=== PATIENT | male | born 1970 | race Caucasian/White ===

== ENCOUNTER 2023-05-21 09:50 | Outpatient (AMB) | payer OTHER, SELFPAY ==
--- NOTE | 2023-05-21 09:56 | A.OFFVIS_ITS ---
Intake Vital Signs 05/21/23 10:13 Height 5 ft 5 in Weight 325 lb 2 oz BMI 54.1 BP 112/64 Blood Pressure Location Lt brachial Position Sitting Pulse 60 Pulse Source Pulse Oximeter Pulse Oximetry (%) 95 Oxygen Delivery Method Room Air Intake Visit Reasons: PYS-OPC-Oczz Intake Note: Patient presents for EULALIO. Waking up every hour. Snoring and biting his tongue while sleeping. Wakes up choking feeling like he needs air . Allergies No Known Allergies Allergy (Verified 05/21/23 10:04) HPI HPI Comments History of Present Illness Details 53 y/o male patient presents for new in- person visit to manage sleep apnea. He was diagnosed with EULALIO in 2007 and has been using CPAP. The first sleep study result was severe degree of sleep apnea. The AHI was 97/hr. He also gained about 130 lb over the last few years. Pt moved from [place] and insurance changed, and did not get CPAP supplies since last January,. Pt states that his mask broken, and he does not have any extra filter, so stopped using CPAP. He was able to sleep well with CPAP and rested. Now he can't sleep well, wakes up frequently, having non refreshing sleep with daytime sleepiness. Pt reports that his sleep study result was severe degree of sleep apnea. The AHI was 97/hr. Sleep questionnaire: Have you ever been diagnosed with a sleep disorder? Yes, EULALIO severe degree. Have you ever had a sleep study in the past? Yes. in 2007. Have you ever been treated for a sleep disorder? Yes, CPAP. Do you take medications for a sleep disorder? No. Do you snore? Yes. Do you wake up gasping at night? Yes. Do you have episodes of apneas? Yes. If yes, are they witnessed? Yes. Do you have episodes of nocturnal chest pain or dyspnea? Yes. Do you have difficulty initiating sleep? Yes. Do you have difficulty maintaining sleep? Yes. Do you wake up tired? Yes. Do you have headaches upon awakening? Yes. Do you wake up with dry mouth or throat? Yes. Do you have GERD? Yes. Do you have nocturia? Yes, too much. Do you have nocturnal leg cramps? No. Do you have symptoms of restless legs? No. Do you act out your dreams? No. Sleep hygiene questionnaire: What is your usual sleep routine? Usual bedtime is at 8:30 pm; Usual wake up time is at 5 am. Do you take naps? Yes, every day, about 3 hrs. Is your sleep environment cool, dark, and quiet? Yes. Do you exercise? No. Do you take caffeine or other stimulants? Coffee and soda, but not every day. Do you use electronics in bed? Yes, What is your work schedule? N/A. Hypersomnolence questionnaire: Do you have daytime tiredness or fatigue? Yes. Do you easily fall asleep when inactive? Yes. Have you ever had episodes of sudden weakness? No. Have you ever had episodes of sudden weakness associated with strong emotions? No. PFSH Surgical History (Updated 05/21/23 @ 10:09 by Mary Alice Ibarra CMA) History of tonsillectomy Family History (Updated 05/21/23 @ 12:35 by Mary Alice Ibarra CMA) Father Diabetes Mother Borderline blood pressure Brother ADHD Sister Arthritis Social History (Updated 05/21/23 @ 10:13 by Mary Alice Ibarra CMA) Household Members: Family and Children Housing: Apartment Alcohol intake: current Comment: Ocassionally Patient Tobacco Use Status: Former Tobacco user Years Smoked: 4 Review of Systems Const All systems reviewed & are unremarkable except as noted in HPI and below Physical Exam Vital Signs: Last Vital Signs Pulse 60 05/21/23 10:13 BP 112/64 05/21/23 10:13 Pulse Ox 95 05/21/23 10:13 Oxygen Delivery Method Room Air 05/21/23 10:13 BMI result Body Mass Index 54.1 Const General: cooperative and tired appearing Nutritional Appearance: obese Orientation/consciousness: patient oriented x3 Neck Neck: Yes full ROM and Yes supple Resp Effort & Inspection: normal respiratory effort and able to speak in complete sentences Neuro General: patient oriented x3 Cranial nerves: Yes CN's II-XII intact bilaterally Cognition (Neuro): normal cognition Gait exam (Neuro): Antalgic gait present Motor exam (neuro): 5/5 motor strength present throughout Psych Appearance: grossly normal Mental Status: mental status grossly normal Speech and movement: Normal speech and movement present Affect: normal affect Attitude: cooperative Assessment & Plan Assessment & Plan (1) EULALIO (obstructive sleep apnea): Comment: hx of severe degree of sleep apnea. AHI was 97/hr. Code(s): G47.33 - Obstructive sleep apnea (adult) (pediatric) (2) Morbid obesity with BMI of 50.0-59.9, adult: Code(s): E66.01 - Morbid (severe) obesity due to excess calories; Z68.43 - Body mass index [BMI] 50.0-59.9, adult Plan Pt is advised to undergo in lab sleep study to assess for sleep apnea. Will f/u with pt after study to discuss results and appropriate treatment options. Sleep hygiene education provided, limit electronic use before bedtime. Wt reduction adivsed. Pt to call with any worsening concerns or questions. Orders: Orders RT PSG in-lab sleep study Today E66.01 - Morbid (severe) obesity due to excess calories, G47.33 - Obstructive sleep apnea (adult) (pediatric), Z68.43 - Body mass index [BMI] 50.0-59.9, adult Coding Level of Care Code New Pt Level 3 (66795) Diagnoses EULALIO (obstructive sleep apnea) G47.33 Morbid obesity with BMI of 50.0-59.9, adult E66.01; Z68.43
[2023-05-21 10:13] VITALS: BP 112/64; PULSE 60; O2SAT 95; BMI 54.1
== END 2023-05-21 10:39 | disposition home or self-care (01) ==
PROVIDERS: PCP Internal Medicine; Visit Provider Nurse Practitioner Family
DX: G47.33 Obstructive sleep apnea (adult) (pediatric) (principal); E66.01 Morbid (severe) obesity due to excess calories; Z68.43 Body mass index [BMI] 50.0-59.9, adult
CPT/HCPCS: 99203

== ENCOUNTER → 2023-05-21 09:50 | Outpatient (BNVA) | payer OTHER, SELFPAY | PROVIDERS: PCP Internal Medicine; Visit Provider Nurse Practitioner Family | DX: G47.33 Obstructive sleep apnea (adult) (pediatric) (principal); E66.01 Morbid (severe) obesity due to excess calories; Z68.43 Body mass index [BMI] 50.0-59.9, adult | CPT/HCPCS: 99202 ==

== ENCOUNTER → 2023-06-02 20:30 | Outpatient (REF) | payer OTHER, SELFPAY | LOC: HO.SL 20:30 | PROVIDERS: Visit Provider Nurse Practitioner Family | DX: G47.33 Obstructive sleep apnea (adult) (pediatric) (principal); E66.01 Morbid (severe) obesity due to excess calories; Z68.43 Body mass index [BMI] 50.0-59.9, adult | CPT/HCPCS: 95810 ==

== ENCOUNTER → 2023-06-02 22:28 | Outpatient (BNV) | payer OTHER, SELFPAY | PROVIDERS: Visit Provider Psychiatry & Neurology Neurology | DX: G47.33 Obstructive sleep apnea (adult) (pediatric) (principal) | CPT/HCPCS: 95810 ==

== ENCOUNTER 2023-09-30 10:31 | Outpatient (AMB) | payer OTHER, SELFPAY ==
--- NOTE | 2023-09-30 10:34 | MHC.OFFVIS ---
Vital Signs 09/30/23 10:35 Height 5 ft 5 in Weight 331 lb BMI 55.1 BP 152/90 H Blood Pressure Location Rt brachial Position Sitting Respiration 16 Pulse 69 Pulse Source Pulse Oximeter Pulse Oximetry (%) 99 Oxygen Delivery Method Room Air Intake Visit Reasons: Follow up EULALIO - Confirmed Intake Note: Pt presents to the office for 4 month follow up for sleep disturbance and to discuss PSG from 06/22/23. Patent Prosecution Paralegal Required: No Allergies No Known Allergies Allergy (Verified 09/30/23 10:35) HPI Comments Details: 53 y/o male comes for follow up of sleep apnea. His repeat sleep study showed severe sleep apnea with good response to CPAP 14.He is waiting for his CPAP. He was diagnosed with EULALIO in 2007 and has been using CPAP. . Pt moved from [place] and insurance changed, and did not get CPAP supplies since last January,. Pt states that his mask broken, and he does not have any extra filter, so stopped using CPAP. He was able to sleep well with CPAP and rested. Now he can't sleep well, wakes up frequently, having non refreshing sleep with daytime sleepiness. Pt reports that his sleep study result was severe degree of sleep apnea. The AHI was 97/hr. [facility] Surgical History History of tonsillectomy Family History Father Diabetes Mother Borderline blood pressure Brother ADHD Sister Arthritis Social History Household Members: Family and Children Housing: Apartment Alcohol intake: current Comment: Ocassionally Patient Tobacco Use Status: Former Tobacco user Years Smoked: 4 Physical Exam Vital Signs: Last Vital Signs Pulse 69 09/30/23 10:35 Resp 16 09/30/23 10:35 BP 152/90 H 09/30/23 10:35 Pulse Ox 99 09/30/23 10:35 Oxygen Delivery Method Room Air 09/30/23 10:35 BMI result Body Mass Index 55.1 Const General: cooperative and tired appearing Nutritional Appearance: obese Orientation/consciousness: patient oriented x3 Neck Neck: Yes full ROM and Yes supple Resp Effort & Inspection: normal respiratory effort and able to speak in complete sentences Neuro General: patient oriented x3 Cranial nerves: Yes CN's II-XII intact bilaterally Cognition (Neuro): normal cognition Gait exam (Neuro): Antalgic gait present Motor exam (neuro): 5/5 motor strength present throughout Assessment & Plan Assessment & Plan (1) EULALIO (obstructive sleep apnea): Comment: hx of severe degree of sleep apnea 71/hr and 75% O2 Code(s): G47.33 - Obstructive sleep apnea (adult) (pediatric) Category: Medical (2) Morbid obesity with BMI of 50.0-59.9, adult: Code(s): E66.01 - Morbid (severe) obesity due to excess calories; Z68.43 - Body mass index [BMI] 50.0-59.9, adult Category: Medical Plan Start patient on CPAP at 14 cm of water and follow up to ensure compliance and therapy response. Coding Level of Care Code Est Pt Level 4 (85519) Diagnoses EULALIO (obstructive sleep apnea) G47.33 Morbid obesity with BMI of 50.0-59.9, adult E66.01; Z68.43
[2023-09-30 10:35] VITALS: BP 152/90; PULSE 69; RESP 16; O2SAT 99; BMI 55.1
== END 2023-09-30 10:51 | disposition home or self-care (01) ==
PROVIDERS: PCP Internal Medicine; Visit Provider Psychiatry & Neurology Neurology
DX: G47.33 Obstructive sleep apnea (adult) (pediatric) (principal); E66.01 Morbid (severe) obesity due to excess calories; Z68.43 Body mass index [BMI] 50.0-59.9, adult
CPT/HCPCS: 99214

== ENCOUNTER → 2023-09-30 10:31 | Outpatient (BNVA) | payer OTHER, SELFPAY | PROVIDERS: PCP Internal Medicine; Visit Provider Psychiatry & Neurology Neurology | DX: G47.33 Obstructive sleep apnea (adult) (pediatric) (principal); E66.01 Morbid (severe) obesity due to excess calories; Z68.43 Body mass index [BMI] 50.0-59.9, adult | CPT/HCPCS: 99212 ==

== ENCOUNTER 2024-04-27 09:47 | Outpatient (AMB) | payer OTHER, SELFPAY ==
[2024-04-27 10:07] VITALS: BP 144/78; PULSE 54; O2SAT 94; BMI 54.6
--- NOTE | 2024-04-27 10:07 | A.OFFVIS_ITS ---
Vital Signs 04/27/24 10:07 Height 5 ft 5 in Weight 328 lb BMI 54.6 BP 144/78 H Blood Pressure Location Lt brachial Position Sitting Pulse 54 Pulse Source Pulse Oximeter Pulse Oximetry (%) 94 Oxygen Delivery Method Room Air Intake Visit Reasons: Follow up EULALIO Intake Note: patient following up for sleep apnea. cpap machine ordered 09/28 compliance report scanned Allergies No Known Allergies Allergy (Verified 04/27/24 10:12) HPI Comments Details: 54 y/o male comes for follow up of sleep apnea. Cpap Compliance Report: 01/28/24- 04/26/24 >4 hours 89 days 99% use Avg usage total 7 hours and 34 Set CPAP pressures 14cm leaks median 26.1 AHI is 4.0 He goes to bed at 8:30pm and gets up at 4:30 am. He has multiple bathroom breaks. He is a single dad for a son age 10, daughter 11, and another son 18 years of age. He is a smoker, has COPD followed by [facility] and trying to quit down to 1/2 pack every 3 days now. He was able to sleep well with CPAP and rested. Now he can't sleep well, wakes up frequently, having non refreshing sleep with daytime sleepiness. His BP is elevated today and we discussed starting meds today, however will refer to PCP. He takes flexiril for his knee pain and LBP. His diet is very poor due to GI issues constant bile coming up in his throat and diarrhea, he has a colonoscopy scheduled on the 08 of June, and Bariatric procedure consult on May 30. His weight used to be 353 and now it is 328 today, he controls his portion sizes now. 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 [facility] Surgical History History of tonsillectomy Family History Father Diabetes Mother Borderline blood pressure Brother ADHD Sister Arthritis Social History Household Members: Family and Children Housing: Apartment Alcohol intake: current Comment: Ocassionally Patient Tobacco Use Status: Former Tobacco user Years Smoked: 4 Physical Exam Vital Signs: Last Vital Signs Pulse 54 04/27/24 10:07 BP 144/78 H 04/27/24 10:07 Pulse Ox 94 04/27/24 10:07 Oxygen Delivery Method Room Air 04/27/24 10:07 BMI result Body Mass Index 54.6 Const General: cooperative and tired appearing Nutritional Appearance: obese (BMI is 54.6) morbidly obese Orientation/consciousness: patient oriented x3 HEENT Face and sinus: Yes normal facial exam and Yes face symmetric Teeth and gingiva: other ([place] score of 4) Eyes Pupils: Equal, round and reactive pupils present Neck Neck: Yes full ROM and Yes supple Resp Effort & Inspection: normal respiratory effort and able to speak in complete sentences Neuro General: patient oriented x3 Cranial nerves: Yes CN's II-XII intact bilaterally, Yes Facial sensation intact/muscles of mastication intact, Yes Equal, round and reactive pupils present, Yes Normal accommodation reflex present, Yes Bilaterally intact EOM present, Yes Nystagmus not present, Yes Normal facial strength present, Yes Midline tongue present, Yes Ability to bilaterally rotate head present and Yes Ability to bilaterally elevate shoulders present Cognition (Neuro): normal cognition Gait exam (Neuro): Antalgic gait present Motor exam (neuro): 5/5 motor strength present throughout Deep tendon reflexes (DTR's): Right triceps reflex intensity grade: 2+, Left triceps reflex intensity grade: 2+, Rt Biceps (C5, C6): 2+, Left biceps reflex intensity grade: 2+, Right brachioradialis reflex intensity grade: 2+, Left brachioradialis reflex intensity grade: 2+, Right patellar reflex intensity grade: 2+ and Left patellar reflex intensity grade: 2+ Psych Attitude: cooperative Thought process: Normal thought process present Thought content: Normal thought content present Results Reviewed Results Reviewed: Cpap Compliance Report: 01/28/24- 04/26/24 >4 hours 89 days 99% use Avg usage total 7 hours and 34 Set CPAP pressures 14cm leaks median 26.1 AHI is 4.0 Assessment & Plan Assessment & Plan (1) EULALIO (obstructive sleep apnea): Comment: hx of severe degree of sleep apnea 71/hr and 75% O2 Code(s): G47.33 - Obstructive sleep apnea (adult) (pediatric) Category: Medical (2) Morbid obesity with BMI of 50.0-59.9, adult: Code(s): E66.01 - Morbid (severe) obesity due to excess calories; Z68.43 - Body mass index [BMI] 50.0-59.9, adult Category: Medical (3) Sciatica of left side: Code(s): M54.32 - Sciatica, left side Category: Medical (4) Uncontrolled hypertension: Code(s): I10 - Essential (primary) hypertension Category: Medical Plan Start patient on CPAP at 14 cm of water and follow up to ensure compliance and therapy response. PT EValuation and treat Sciatica L. hip / leg / buttocks HTN Primary Essential will refer to primary care Monitor BP daily twice a day. Anxiety will start him on Buproprion HCL 150ml XL daily one tablet by mouth in the morning. Orders: Orders PT Evaluation and Treatment Today M54.32 - Sciatica, left side Medications: New bupropion HCl XL (Wellbutrin XL) 150 mg PO QAM 30 tabs 4RF Patient Instructions: BP is elevated today, despite diet, exercise and lifestyle changes. According to the AHA the #1 modifiable risk factor for CV events is good BP management. BMI is 54.6, he is seeing weight management and will be having an elective bariatric procedure in May. Walking can help to lower the BP and weight. Sleep Hygiene provided, sleeping in a dark cool environment without any devices in bed, put a plant in your room to minimize dust particles. Smoking Cessation discussed, counseling along with Buproprion and the patch is the best approach. Complete Labs F/U in 3 months and you may access us on the [facility] Portal. Coding Level of Care Code Est Pt Level 4 (06531) Diagnoses EULALIO (obstructive sleep apnea) G47.33 Morbid obesity with BMI of 50.0-59.9, adult E66.01; Z68.43 Sciatica of left side M54.32 Uncontrolled hypertension I10 Time Spent (min) 40 Comment
--- OUTSIDE RECORDS SUMMARY | 2024-04-27 10:35 | XMS_ITS | Encounter Summary ---
Author Organization [facility] Address [address] [place] [address] Care Team Providers Care Design Maintenance Engineer Name Role Phone Saji Cage MD Primary Care Provider [phone] Reason for Visit * Consultation (Routine) - Authorized Specialty Diagnoses / Procedures Referred By Contac t Referred To Contact Physical Therapy Diagnoses Bilateral knee pain DJD (degenerative joint disease) Alberto Lynn MD [address] [address] Phone: tel: fax: [facility] [address] [address] Phone: tel: fax: Referral ID Status Reason Start Date Expiration Date Visits Requested Visits Authorized [id number] Authorized Specialty Services Required 12/13/2023 12/12/2024 20 20 Encounter Details Date Type Department Care Team (Late st Contact Info) Description 03/29/2024 10:30 AM EST Treatment [facility] [address] [address] Tere Montgomery PT Chronic pain of both knees (Primary Dx) Social History Tobacco Use Types Packs/Day Years Used Date Smoking Tobacco: Every Day Alcohol Use Standard Drinks/Week Comments Never 0 (1 standard drink = 0.6 oz pur e alcohol) Sex and Gender Information Value Date Recorded Sex Assigned at Male 2024 8:39 AM EST Legal Sex Male 8:56 PM EST Gender Identity Male 2024 8:39 AM EST Sexual Orientation Straight 2024 8: 39 AM EST documented as of this encounter Progress Notes * Tere Montgomery PT - 03/29/2024 10:30 AM EST [facility] - Outpatient PHYSICAL THERAPY DAILY TREATMENT NOTE - OP Date: 03/29/2024 Visit Number: [id number] Patient Name: Migel Hansen : 1970 Age: 54 y.o. Gender: male Diagnosis: ICD-10-CM ICD-9-CM 1. 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 bisacodyL (DULCOLAX) 5 mg EC tablet Take 2 tablets by mouth right before beginning bowel prep. See instructions provided by the office 2 tablet 0 colestipoL (COLESTID) 1 gram tablet Take 1 tablet (1 g total) by mouth. cyclobenzaprine (FLEXERIL) 10 mg tablet Take 1 tablet (10 mg total) by mouth 3 (three) times a day if needed. for muscle spasms diclofenac (VOLTAREN) 1 % topical gel Apply 2 g topically 2 (two) times a day if needed (pain). 60 g 2 diclofenac (VOLTAREN) 75 mg EC tablet Take 1 tablet (75 mg total) by mouth 2 (two) times a day if needed (pain). Do not crush, chew, or split. 60 tablet 1 nicotine (NICODERM CQ) 14 mg/[address] 1 patch on the skin. nicotine (NICODERM CQ) 7 mg/[address] 1 Patch onto the skin every 24 hours. omeprazole (PriLOSEC) [address] capsule Take 1 capsule (40 mg total) by mouth. polyethylene glycol (Golytely) 236-22.74-6.74 -5.86 gram solution Take 4L by mouth once for one dose. May substitue any PEG. Starting at 6PM the night before your procedure drink 1 8oz glasses at your own pace until you complete half of the gallon. Finish 2nd half of the gallon 5 hours before your procedure. 4000 mL 0 predniSONE (DELTASONE) 20 mg tablet Take 60 mg PO daily for 3 days, then take 40 mg PO daily for 3 days, then 20 mg PO daily for 3 days, then stop 18 tablet 0 [] semaglutide (Wegovy) 0.25 mg/0.5 mL injection pen Inject 0.25 mg under the skin every 7 (seven) days. 2 mL 0 triamcinolone (KENALOG) 0.1 % cream Apply topically 2 (two) times a day. Apply to affected area 1-2times daily as needed for 2 weeks FOR RASH LEFT FOREARM 30 g 0 No current facility-administered medications on file prior to visit. Allergies: has No Known Allergies. Precautions: none Fall risk: No Patient/Caregiver Goals: SUBJECTIVE Subjective Report: Pt reported that he has had a lot of pain in his knees since Wednesday. Pt presented to session with unilateral crutch. Chart Reviewed: Yes Pain Pain in (B) knees during WB, 8/10 R, 6/10 L Bilateral ankles and R heel, chronic, 7-8/10 on R, 5-6/10 on L OBJECTIVE TREATMENT INTERVENTION: Modalities: None performed Procedures: Therex: Seated hamstring and hip ADD stretch, 3 x 15 seconds each on R, pt unable to tolerate on L Seated gluteal stretch, 3 x 15 seconds (B) Hip IR PROM: 35 deg on L, WNL on R Hip ER PROM: WNL (B) Hamstring length: WNL (B) Hip MMT: ABD: 4/5 L, 4/5 R Extension: 4-/5 L, 4-/5 R Supine piriformis and figure-4 stretch, 3 x 15 seconds each (B), use of towel for assist Bridging with isometric hip ABD against blue TB, 2 x 10 Resisted hip ABD in HL, blue TB, 2 x 10 MFR to bilateral TFL/ITB and vastus lateralis muscles using foam roller, x 5 minutes (2.5 minutes/side) ASSESSMENT/Response to Treatment Fair Pt presented to session with c/o increased bilateral knee pain and exhibited slight difficultywith tolerating therex. However, pt demonstrated increased strength and ROM overall. Pt is compliant and independent with current HEP. Pt is agreeable to discharge on this date with continuation of HEP independently over the next 2-3 months to further progress strength and flexibility. Long-term goals: Pt will demonstrate independence with final HEP - MET Pt will report decreased pain level to < 4/10 at worst - NOT MET Pt will increase hip MMT to 3+/5 - MET Pt will increase hip IR PROM to 30 deg - MET Patient Education: Education provided: Yes. POC, Pt instructed to continue with current HEP over the next 2-3 months to further progress strength and flexibility. Education Provided To: patient utilizing explanation mode(s) of education Response to Education: pt demonstrated good understanding PLAN POC Development/Review: No Change in the Plan of Care; Participants: Patient Total Treatment Time: 30 Therex: 30 minutes Documentation completed by Tere Montgomery PT documented in this encounter Plan of Treatment Upcoming Encounters Date Type Department Care Team (Late st Contact Info) Description 05/01/2024 2:45 PM EST Consult Orthopedic Surgery - [place] [address] [phone] Byron Kohli DPM [address] [address] 05/02/2024 9:00 AM EST Consult Bariatric Surgery - [place] [address] [phone] Earnestine Lin, SAMEERA [address] [phone] 05/04/2024 1:00 PM EST Procedure visit General Surgery - [place] 175 [facility] 110 [place] [address] Cleveland Schreiber, DO 175 [facility] 110 [place] [address] 05/26/2024 11:30 AM EDT Office Visit Adult Medicine [facility] [address] [place] [address] Saji Cage MD 444 [place], [place] 05/30/2024 11:30 AM EDT Office Visit Bariatric Surgery [facility] 175 [facility] 120 [place] [phone] Miranda Rayo PA 271 [facility] 120 [place] [address] 06/08/2024 3:00 PM EDT Appointment [facility] Endoscopy 271 [place] [phone] Neyda Blair MD 175 [facility] 200 [place] [address] 07/19/2024 9:30 AM EDT Office Visit Orthopedic Surgery [facility] 160 175 [facility] 160 [place] [phone] Nathalia Ramires PA 175 [facility] 160 [place] [address] documented as of this encounter Visit Diagnoses Diagnosis Chronic pain of both knees- Primary documented in this encounter Care Teams Design Maintenance Engineer Relationship Specialty Start Date End Date Saji Cage MD 444 [place] [address] PCP - General 04/01/23 documented as of this encounter
--- OUTSIDE RECORDS SUMMARY | 2024-04-27 10:35 | XMS_ITS | Encounter Summary ---
Author Organization [facility] Address [address] [place] [address] Care Team Providers Care Manager Land Name Role Phone Saji Cage MD Primary Care Provider Reason for Visit * Reason Onset Date Comments pt1 04/20/2024 Encounter Details Date Type Department Care Team ([facility] st Contact Info) Description 04/20/2024 Telephone Adult Medicine [facility] 444 [place] [phone] Saji Cage MD 444 [place] [address] pt1 Social History Tobacco Use Types Packs/Day Years [...] care for your loved ones. For example, children's counselor or elderly care for an older adult? [...] What is your living situation? 0 04/19/2024 Sex and Gender Information Value Date Recorded Sex Assigned at Male 2024 8:39 AM EST Legal Sex Male 8:56 PM EST Gender Identity Male 2024 8:39 AM EST Sexual Orientation Straight 2024 8: 39 AM EST documented as of this encounter Progress Notes * Lili Allison LPN - 04/20/2024 1:15 PM EST PT 1 form submitted [facility] 1 visit a week for 1 yr Door to door Tracking # [id number] * Sari Negron - 04/20/2024 12:49 PM EST PT-1 Request Call [facility] new provider or submitter number is [id number] Verify and document patients [place] Health insurance ID # (NOT [facility] ID): [id number] Payor: [employer] PLAN / Plan: [employer] MEDICAID / Product Type: *No Product type* / Patient mailing address: [address] [place] [address] (home) Pt. demographics verified? yes If not accurate, update registration. Is this a NEW request or a RENEWAL? New request [facility] facility[facility] Name (first & last) of treating provider? required : sami Fortune What is the medical reason why the patient is seeing the above provider? Ptsd, anxiety, depression Address/Zip code for treating provider: [address] [place] [address] Phone # for treating provider: [phone] Is the provider in the [facility] [employer] network (do they accept [place] Health insurance)? yes What specialtly is this provider? Mental health When is the visit scheduled for? 04/25/2024 How often you will be seeing this particular provider? Every Wednesday, 11am, once a week for the next year Do you have friends or family who can transport you to this visit? no If yes, do not complete request. Is there anything stopping you from using public transportation? If yes, explain: yes Is there a medical reason (diagnosis) why you are unable to use public transportation? If yes, explain: Yes,disabled, non-walking Does patient carry self-administered oxygen? no Does patient require door through door or room to room service( ex: member cannot ambulate or wait independently outside their home/facility for transportation. yes Is this is for an Adult Day Program or Suboxone clinic No If yes to above what is arrival time and what is departure time If yes to above how many days a week? Do you need a wheelchair van? no If you use a wheelchair what is the height, width & length of the wheelchair? Do you need an escort to accompany you? If yes, explain why. no Will you have an alternative pick-up address? no Do you have a service animal? no PT DOES NOT NEED RELEASE OF INFORMATION SIGNED documented in this encounter Plan of Treatment Upcoming Encounters Date Type Department Care Team (Late st Contact Info) Description 05/01/2024 2:45 PM EST Consult Orthopedic Surgery [facility] [address] [phone] Byron Kohli, DPRose Marie [address] [address] 05/02/2024 9:00 AM EST Consult Bariatric Surgery [address] [phone] [phone] 05/04/2024 1:00 PM EST Procedure visit General Surgery [address] [phone] Cleveland Schreiber, DO [address] [address] 05/26/2024 11:30 AM EDT Office Visit Adult Medicine [facility] 444 [place] [address] Saji Cage MD 444 [place] [address] 05/30/2024 11:30 AM EDT Office Visit Bariatric Surgery [facility] [address] [phone] Miranda Rayo PA [address] [address] 06/08/2024 3:00 PM EDT Appointment [facility] Endoscopy 271 [place] [phone] Neyda Blair MD 175 [facility] 200 [place] [address] 07/19/2024 9:30 AM EDT Office Visit Orthopedic Surgery - [place] 160 175 [facility] 160 [place] [address] Nathalia Ramires PA 175 [facility] 160 [place] [address] documented as of this encounter Visit Diagnoses Not on filedocumented in this encounter Additional Health Concerns Assessment Noted Time PHQ-9 Depression Total Score: 15 025 11:46 AM EST documented as of this encounter Care Teams Manager Land Relationship Specialty Start Date End Date Saji Cage MD [address] [place] [address] PCP - General 04/01/23 documented as of this encounter
--- OUTSIDE RECORDS SUMMARY | 2024-04-27 10:35 | XMS_ITS | Encounter Summary ---
Author Organization [facility] Address [address] [place] [address] Care Team Providers Care Tissue Technician Name Role Phone Saji Cage MD Primary Care Provider [phone]- [phone] Reason for Visit * Reason Onset Date Comments Medication Problem 03/21/2024 Encounter Details Date Type Department Care Team ([facility] Contact Info) Description 03/21/2024 Telephone Adult Medicine [facility] 444 [place] [phone] Saji Cage MD 444 [place] [address] Medication Problem Social History Tobacco Use Types Packs/Day Years [...] care for your loved ones. For example, child welfare social worker or elderly care for an older adult? [...] as of this encounter Progress Notes * Ayden Donovan - 03/21/2024 11:20 AM EST Medication Problem: What is the name of the medication patient is having a problem with?: wegovy What is the problem?: needs PA Who is calling about the problem? : The patient Is this a NEW medication?: yes How long has the patient been taking this medication? Who prescribed this medication for the patient? Saji Cage MD Who is patients PCP?: Saji Cage MD Payor: [facility] PLAN / Plan: [employer] MEDICAID / Product Type: *No Product type* / documented in this encounter Plan of Treatment Upcoming Encounters Date Type Department Care Team (Late st Contact Info) Description 05/01/2024 2:45 PM EST Consult Orthopedic Surgery - [place] [address] [phone] Byron Kohli DPM [address] [address] 05/02/2024 9:00 AM EST Consult Bariatric Surgery [address] [phone] Earnestine Lin, SAMEERA [address] [phone] 05/04/2024 1:00 PM EST Procedure visit General Surgery [address] [phone] Cleveland Schreiber DO [address] [address] 05/26/2024 11:30 AM EDT Office Visit Adult Medicine [address] [address] Saji Cage MD [address] [place] [address] 05/30/2024 11:30 AM EDT Office Visit Bariatric Surgery [address] [phone] Miranda Rayo PA [address] [address] 06/08/2024 3:00 PM EDT Appointment [facility] Endoscopy 271 [place] [phone] Neyda Blair MD 175 [facility] 200 [place] [address] 07/19/2024 9:30 AM EDT Office Visit Orthopedic Surgery - [place] 160 175 [facility] 160 [phone] Nathalia Ramires PA 175 [facility] 160 [place] [address] documented as of this encounter Visit Diagnoses Not on filedocumented in this encounter Care Teams Tissue Technician Relationship Specialty Start Date End Date Saji Cage MD [address] [place] [address] PCP - General 04/01/23 documented as of this encounter
--- OUTSIDE RECORDS SUMMARY | 2024-04-27 10:35 | XMS_ITS | Encounter Summary ---
Author Organization [employer] [facility] Address [address] [place] [address] Care Team Providers Care Director Of Broadcast Name Role Phone Saji Cage MD Primary Care Provider Reason for Visit * Reason Onset Date Comments pt1 04/20/2024 Encounter Details Date Type Department Care Team ([facility] st Contact Info) Description 04/20/2024 Telephone Adult Medicine [facility] 444 [place] [phone] Saji Cage MD 444 [place] [address] pt1 Social History Tobacco Use Types Packs/Day [...] for your loved ones. For example, children counselor or elderly care for an older [...] Notes * Lili Allison LPN - 04/20/2024 1:24 PM EST PT 1 form submitted [facility] [address] [place] [address], [facility] 6 visit yearly with door to door Tracking # [id number] * Sari Negron - 04/20/2024 12:57 PM EST PT-1 Request Call [facility] new provider or submitter number is [id number] Verify and document patients [place] Health insurance ID # (NOT [facility] ID): [id number] Payor: [employer] PLAN / Plan: [employer] MEDICAID / Product Type: *No Product type* / Patient mailing address: [address] [place] [address] (home) Pt. demographics verified? yes If not accurate, update registration. Is this a NEW request or a RENEWAL? New request Name of treating facility: [facility] Name (first & last) of treating provider? required : tbd What is the medical reason why the patient is seeing the above provider? Sleep disorder Address/Zip code for treating provider: [address] [place] [address] Phone # for treating provider: [phone] Is the provider in the [facility] [employer] network (do they accept [place] Health insurance)? yes What specialtly is this provider? Sleep study and neurology When is the visit scheduled for? 04/27/2024 at 1030pm How often you will be seeing this particular provider? Every three months Do you have friends or family who can transport you to this visit? no If yes, do not complete request. Is there anything stopping you from using public transportation? If yes, explain: yes Is there a medical reason (diagnosis) why you are unable to use public transportation? If yes, explain: Yes,disabled Does patient carry self-administered oxygen? no Does [...] 05/01/2024 2:45 PM EST Consult Orthopedic Surgery [facility] [address] [phone] Byron Kohli, DPRose Marie [address] [address] 05/02/2024 9:00 AM EST Consult Bariatric Surgery [address] [phone] [phone] 05/04/2024 1:00 PM EST Procedure visit General Surgery [address] [phone] Cleveland Schreiber, DO [address] [address] 05/26/2024 11:30 AM EDT Office Visit Adult Medicine [facility] 444 [place] [address] Saji Cage MD 444 [place] [address] 05/30/2024 11:30 AM EDT Office Visit Bariatric Surgery [facility] [address] [phone] Miranda Rayo PA [address] [address] 06/08/2024 3:00 PM EDT Appointment [facility] Endoscopy 271 [place] [phone] Neyda Blair MD 175 [facility] 200 [place] [address] 07/19/2024 9:30 AM EDT Office Visit Orthopedic Surgery - [place] 160 175 [facility] 160 [place] [address] Nathalia Ramires PA 175 [facility] 160 [place] [address] documented as of this encounter Visit Diagnoses Not on filedocumented in this encounter Additional Health Concerns Assessment Noted Time PHQ-9 Depression Total Score: 15 025 11:46 AM EST documented as of this encounter Care Teams Director Of Broadcast Relationship Specialty Start Date End Date Saji Cage MD [address] [place] [address] PCP - General 04/01/23 documented as of this encounter
--- OUTSIDE RECORDS SUMMARY | 2024-04-27 10:35 | XMS_ITS | Clinical Summary ---
Author Organization 175 [facility] Address [address] [place] [address] Phone Care Team Providers Care Servicenow Administrator Name Role Phone Saji Cage MD Primary Care Provider Allergies No known active allergies Medications nicotine (NICODERM CQ) 7 mg/[address] 1 Patch onto the skin every 24 hours. 11/13/19 24 Active nicotine (NICODERM CQ) 14 mg/[address] 1 patch on the skin. 11/07/19 24 Active polyethylene glycol (Golytely) 236-22.74-6.74 -5.86 gram solution Take 4L by mouth once for one dose. May substitue any PEG. Starting at 6PM the night before your procedure drink 1 8oz glasses at your own pace until you complete half of the gallon. Finish 2nd half of the gallon 5 hours before your procedure. 4000 mL 02/08/20 24 Active bisacodyL (DULCOLAX) 5 mg EC tablet Take 2 tablets by mouth right before beginning bowel prep. See instructions provided by the office 2 tablet 02/08/20 24 Active omeprazole (PriLOSEC) [address] capsule Take 1 capsule (40 mg total) by mouth. 12/28/19 24 025 Active cyclobenzaprin e (FLEXERIL) 10 mg tablet Take 1 tablet (10 mg total) by mouth 3 (three) times a day if needed. for muscle spasms 08/25/19 24 Active diclofenac (VOLTAREN) 1 % topical gel Apply 2 g topically 2 (two) times a day if needed (pain). 60 g 2 02/23/20 24 025 Active triamcinolone (KENALOG) 0.1 % cream Apply topically 2 (two) times a day. Apply to affected area 1-2 times daily as needed for 2 weeks FOR RASH LEFT FOREARM 30 g 02/23/20 24 Active predniSONE (DELTASONE) 20 mg tablet Take 60 mg PO daily for 3 days, then take 40 mg PO daily for 3 days, then 20 mg PO daily for 3 days, then stop 18 tablet 02/23/20 24 Active colestipoL (COLESTID) 1 gram tablet TAKE 1 TABLET BY MOUTH 2 TIMES DAILY FOR 90 DAYS. 180 tablet 03/30/19 25 Active albuterol HFA (Proventil HFA) 90 mcg/actuation inhalerIndicat ions:Obstructi ve lung disease (CMS/HCC) Inhale 2 puffs by mouth every 4 (four) hours if needed for wheezing or shortness of breath. 6.7 g 1 04/02/19 25 026 Active tirzepatide, weight loss, (Zepbound) 2.5 mg/0.5 mL injectionIndic ations:Class 3 severe obesity due to excess calories with body mass index (BMI) of 50.0 to 59.9 in adult, unspecified whether serious comorbidity present (CMS/HCC),EULALIO (obstructive sleep apnea) Inject 0.5 mL (2.5 mg total) under the skin every 7 (seven) days. 2 mL 04/13/19 25 Active diclofenac (VOLTAREN) 75 mg EC tablet TAKE 1 TABLET BY MOUTH TWICE A DAY NEEDED FOR PAIN DO NOT CRUSH, CHEW, OR SPLIT 60 tablet 1 04/21/19 25 Active colestipoL (COLESTID) 1 gram tablet Take 1 tablet (1 g total) by mouth. 12/28/19 24 025 Discontinued albuterol HFA (PROAIR HFA ; PROVENTIL HFA ; VENTOLIN HFA) 90 mcg/actuation inhaler Inhale 2 puffs by mouth every 6 (six) hours if needed for wheezing. 025 Discontinued diclofenac (VOLTAREN) 75 mg EC tablet Take 1 tablet (75 mg total) by mouth 2 (two) times a day if needed (pain). Do not crush, chew, or split. 60 tablet 1 02/23/20 24 025 Discontinued Active Problems Problem Noted Date Diagnosed Date Class 3 severe obesity due t o excess calories with serious comorbidity and body mass index (BMI) of 50.0 to 59.9 in adult 12/20/2023 Tear of medial meniscus of right knee 10/05/2023 Skin lumps 10/05/2023 Right medial knee pain 10/05/2023 Primary hypertension 10/05/2023 Pain of left calf 10/05/2023 Nausea 10/05/2023 Left hand pain 10/05/2023 Diarrhea 10/05/2023 Bloating 10/05/2023 EULALIO (obstructive sleep apnea) 04/02/2023 Cigarette smoker motivated to quit 04/02/2023 PTSD (post-traumatic stress disorder) 04/02/2023 Anxiety 04/02/2023 Anxiety and depression 04/02/2023 Encounters Date Type Department Care Team Description 04/21/2024 Telephone General Surgery [address] [place] [address] Cleveland Schreiber, prior authorization (05/04/2024 Dr. Schreiber) 04/20/2024 Telephone Adult Medicine [address] [phone] Saji Cage MD Results 04/20/2024 Telephone Adult Medicine [address] [phone] Saji Cage MD pt1 04/20/2024 Telephone Adult Medicine [address] [phone] Saji Cage MD pt1 04/13/2024 10:30 AM EST Consult Bariatric Surgery [address] [place] [address] Miranda Rayo PA EULALIO (obstructive sleep apnea) (Primary Dx); Class 3 severe obesity due to excess calories with body mass index (BMI) of 50.0 to 59.9 in adult, unspecified whether serious comorbidity present (CMS/[facility]); Primary hypertension 03/30/2024 2:15 PM EST Office Visit General Surgery [address] [place] [phone] Cleveland Schreiber, DO Multiple lipomas (Primary Dx) 03/30/2024 Telephone Adult Medicine [facility] [address] [place] [phone] Saji Cage MD 03/29/2024 10:30 AM EST Treatment [address] [phone] Tere Montgomery, PT Chronic pain of both knees (Primary Dx) 03/27/2024 10:30 AM EST Treatment [address] [phone] Tere Montgomery, PT Chronic pain of both knees (Primary Dx) 03/24/2024 1:30 PM EST Ancillary Procedure Pulmonolgy - [address] [place] [phone] De Souza, Lataia Wheezing (Primary Dx); SOB (shortness of breath) 03/21/2024 Telephone Adult Medicine [facility] [address] [place] [phone] Saji Cage MD Medication Problem 03/15/2024 10:30 AM EST Treatment [address] [phone] Tere Montgomery, PT Chronic pain of both knees (Primary Dx) 03/13/2024 10:30 AM EST Treatment [address] [phone] Tere Montgomery, PT Chronic pain of both knees (Primary Dx) 2024 10:30 AM EST Treatment [address] [phone] Tere Montgomery, PT Chronic pain of both knees (Primary Dx) 03/07/2024 10:00 AM EST Treatment [facility] [address] [phone] Tere Montgomery, PT Chronic pain of both knees (Primary Dx) 02/23/2024 10:13 AM EST - 02/23/2024 11:59 PM EST Hospital Encounter [address] [phone] Chronic heel pain, right Discharge Disposition: Home or Self Care 02/23/2024 9:30 AM EST Office Visit Adult Medicine [address] [phone] Saji Cage MD Hypercholesterolemia (Primary Dx); Fatty liver; Class 3 severe obesity due to excess calories with serious comorbidity and body mass index (BMI) of 50.0 to 59.9 in adult (CMS/HCC); EULALIO on CPAP; Chronic heel pain, right; Wheezing; SOB (shortness of breath); Dyspnea on exertion; Elevated blood pressure reading; Rash 02/22/2024 10:00 AM EST Treatment [facility] [address] [phone] Tere Montgomery, PT Chronic pain of both knees (Primary Dx) 02/22/2024 Telephone Gastroenterology [address] [place] [phone] Neyda Blair MD Special Procedure 02/15/2024 Telephone [facility] [address] [phone] Tere Montgomery, PT No Show (See above) 02/08/2024 10:00 AM EST Treatment [address] [phone] Tere Montgomery, PT Chronic pain of both knees (Primary Dx) 02/01/2024 9:00 AM EST Treatment [address] [phone] Tere Montgomery, PT Chronic pain of both knees (Primary Dx) from Last 3 Months Surgical History Surgery Date Site/Laterality Comments KNEE SURGERY Right PROCEDURE: HISTORICAL KNEE SURGERY TONSILLECTOMY PROCEDURE: HISTORICAL TONSILLECTOMY CHOLECYSTECTOMY PROCEDURE: HISTORICAL CHOLECYSTECTOMY Medical History Medical History Date Comments Sleep apnea DX:Sleep apnea PTSD (post-traumatic stress disorder) DX:PTSD (post-traumatic stress disorder) Anxiety disorder DX:Anxiety diso rder Depression DX:Depression Right knee pain DX:Right knee pa in Osteoarthritis DX:Osteoarthriti s Family History Medical History Relation Name Comments Other: AUTISM Daughter Diabetes Father Glaucoma Father Hypertension Father Hypertension Mother Other: AUTISM Son Relation Name Status Comments Daughter Alive Father Mother Son Alive Social History Tobacco Use Types Packs/Day Years Used Date Smoking Tobacco: Every Day Tobacco Cessation:Ready to Q uit: Not Asked; Counseling Given: Not Answered Alcohol Use Standard Drinks/Week Comments Never 0 [...] for your loved ones. For example, child care provider or elderly care for an older adult? [...] Orientation Straight 2024 8: 39 AM EST Obstetrics History Last Filed Vital Signs Vital Sign Reading Time Taken Comments Blood Pressure 154/72 04/13/2024 10:30 AM EST Pulse 62 04/13/2024 10:30 AM EST Temperature 36.7 ??C (98 ??F) 02/23/2024 9:17 AM EST Respiratory Rate 12 02/23/2024 9:17 AM EST Oxygen Saturation - - Inhaled Oxygen Concentration - - Weight 152 kg (334 lb) 04/13/2024 10:30 AM EST Height 167.6 cm (5' 6 ) 04/13/2024 10:30 AM EST Body Mass Index 53.91 04/13/2024 10:30 AM EST Plan of Treatment Upcoming Encounters Date Type Department Care Team (Late st Contact Info) Description 05/01/2024 2:45 PM EST Consult Orthopedic Surgery - [place] [address] [phone] Byron Kohli DPM 175 [facility] [address] [place] [address] 05/02/2024 9:00 AM EST Consult Bariatric Surgery - [place] [address] [phone] Earnestine Lin, RD [address] [phone] 05/04/2024 1:00 PM EST Procedure visit General Surgery [facility] [address] [phone] Cleveland Schreiber, DO [address] [phone] 05/26/2024 11:30 AM EDT Office Visit Adult [facility] [address] [place] [phone] Saji Cage MD [address] [place] [address] 05/30/2024 11:30 AM EDT Office Visit Bariatric Surgery [facility] [address] [phone] Miranda Rayo PA [address] [address] 06/08/2024 3:00 PM EDT Appointment [facility] Endoscopy [address] [place] [phone] Neyda Blair MD 175 [facility] [address] [place] [address] 07/19/2024 9:30 AM EDT Office Visit Orthopedic Surgery [facility] 160 175 [facility] [address] [place] [phone] Nathalia Ramires PA [address] [phone] Health Maintenance Due Date Last Done Comments DTaP,Tdap,and Td Vaccines (1 - Tdap) 1991 Hepatitis A Vaccines (1 of 2 - Risk 2-dose series) 1991 Hepatitis B Vaccines (1 of 3 - 19+ 3-dose series) 1991 Pneumococcal Vaccine: 50+ Years (1 of 2 - PCV) 1991 Pneumococcal Vaccine: Pediatrics (0 to 5 Years) and At-Risk Patients (6 to 64 Years) (1 of 2 - PCV) 1991 Zoster Vaccines (1 of 2) 2022 Colorectal Cancer Screening: Colonoscopy 04/02/2023 HIV Screening 04/02/2023 COVID-19 Vaccine ( - season) 2023 Influenza Vaccine (#1) 2023 Hypertension/CHF/CAD Annual BMP Blood Test 10/04/2024 10/05/2023, 10/05/2023 Depression Screening 04/19/2025 04/19/2024, 10/05/19 24 Social Influencers of Health Screening 04/19/2025 04/19/2024 Cholesterol Screening (Lipid Panel) 03/03/2029 03/03/2024, 10/06/2023, 10/06/2023, Additional history exists Hepatitis C Screening Completed 11/18/2023 HIB Vaccines Aged Out No longer eligi ble based on patient's age to complete this topic HPV Vaccines Aged Out No longer eligi ble based on patient's age to complete this topic IPV Vaccines Aged Out No longer eligi ble based on patient's age to complete this topic MMR Vaccines Aged Out No longer eligi ble based on patient's age to complete this topic Meningococcal ACWY Vaccine Aged Out N o longer eligible based on patient's age to complete this topic Meningococcal B Vacine Aged Out No lo nger eligible based on patient's age to complete this topic RSV Immunization Patients Under 20 months Aged Out No longer eligible based on patient's age to complete this topic Varicella Vaccines Aged Out No longer eligible based on patient's age to complete this topic Procedures Procedure Name Priority Date/Time Associated Diagnosis Comments PULMONARY FUNCTION TESTING Routine 03/24/2024 2:14 PM EST Wheezing SOB (shortness of breath) B-TYPE NATRIURETIC PEPTIDE Routine 03/03/2024 9:13 AM EST SOB (shortness of breath) Dyspnea on exertion LIPID PANEL WITH REFLEX TO DIRECT LDL Routine 03/03/2024 9:13 AM EST Hypercholesterolemi a HEPATIC FUNCTION PANEL Routine 03/03/2024 9:13 AM EST Hypercholesterolemi a XR FOOT 3+ VIEWS RIGHT Routine 02/23/2024 10:31 AM EST Chronic heel pain, right HEPATITIS C SCREENING Routine 11/18/2023 DEPRESSION SCREENING Routine 10/05/2023 ANNUAL BMP BLOOD TEST Routine 10/05/2023 from Last 3 Months or Most Recently Relevant to Health Maintenance Results * Pulmonary function testing: Spirometry, Spirometry with Bronchodilator (03/24/2024 2:14 PM EST) Impressions Daylin Moore MD - 03/24/2024 2:14 PM EST FEV1/FVC 92%. FEV1 3.20 at 98%. FVC 83%. No bronchodilator change. TLC 121%. RV 882%. DLCO 119%. Mild obstruction and air trapping hyperinflation. ??No restriction. ??And no decrease in diffusion. Finding consistent mild obstructive lung disease. us Saji Cage MD PFT ORDERABLES Final Resul t * Lipid panel with reflex to direct LDL (03/03/2024 9:13 AM EST) Cholesterol 149 0 - 200 mg/dL LAB CHEMISTRY METHOD 03/03/2024 10:42 AM EST [facility] Triglycerides 86 0 - 150 mg/dL LAB CHEMISTRY METHOD 03/03/2024 10:42 AM EST [facility] HDL 40 >=40 mg/dL LAB CHEMISTRY METHOD 03/03/2024 10:42 AM [facility] LDL Calculated 92 0 - 100 mg/dL LAB CHEMISTRY METHOD 03/03/2024 10:42 AM [facility] VLDL Cholesterol Brad 17.2 mg/dL LAB CHEMISTRY METHOD 03/03/2024 10:42 AM [facility] Non HDL Chol. (LDL+VLDL) 109 <145 mg/dL LAB CHEMISTRY METHOD 03/03/2024 10:42 AM [facility] Chol/HDL Ratio 3.7 0.0 - 4.4 LAB CHEMISTRY METHOD 03/03/2024 10:42 AM [facility] Blood Venous blood specimen / Unknown Venipuncture / Unknown 03/03/2024 9:13 AM EST 03/03/2024 10:04 AM EST Saji Cage MD LAB BLOOD ORDERABLES Final Result [facility] [address] [place] [address], [place] [phone] * B-type natriuretic peptide (03/03/2024 9:13 AM EST) [facility] BNP <2 <=100 pcg/mL LAB CHEMISTRY METHOD 03/03/2024 10:44 AM [facility] Blood Venous blood specimen / Unknown Venipuncture / Unknown 03/03/2024 9:13 AM EST 03/03/2024 10:03 AM EST Saji Cage MD LAB BLOOD ORDERABLES Final Result [facility] [address] [place] [address], [place] [phone] * (ABNORMAL) Hepatic function panel (03/03/2024 9:13 AM EST) [facility] Total Protein 7.0 6.0 - 8.0 g/dL LAB CHEMISTRY METHOD 03/03/2024 10:42 AM [facility] Albumin 3.9 3.2 - 5.0 g/dL LAB CHEMISTRY METHOD 03/03/2024 10:42 AM [facility] Total Bilirubin 0.9 0.0 - 1.4 mg/dL LAB CHEMISTRY METHOD 03/03/2024 10:42 AM [facility] Bilirubin, Direct 0.3 0.0 - 0.3 mg/dL LAB CHEMISTRY METHOD 03/03/2024 10:42 AM [facility] Bilirubin, Indirect 0.6 0.0 - 1.1 mg/dL LAB CHEMISTRY METHOD 03/03/2024 10:42 AM [facility] ALT (SGPT) 82(H) 10 - 60 unit/L LAB CHEMISTRY METHOD 03/03/2024 10:42 AM [facility] AST (SGOT) 30 10 - 42 unit/L LAB CHEMISTRY METHOD 03/03/2024 10:42 AM [facility] Alkaline Phosphatase 99 42 - 121 unit/L LAB CHEMISTRY METHOD 03/03/2024 10:42 AM [facility] Blood Venous blood specimen / Unknown Venipuncture / Unknown 03/03/2024 9:13 AM EST 03/03/2024 10:04 AM EST us Saji Cage MD LAB BLOOD ORDERABLES Final Result [facility] [address] [place] [address], * XR Foot 3+ Views Right (02/23/2024 10:31 AM EST) Anatomical Region Laterality Modality Lower Extremities, Foot Right Radiogra phic Imaging 02/23/2024 1:07 PM EST Impressions 02/23/2024 1:10 PM EST No acute fracture or dislocation of the right foot. Enthesopathy of the calcaneus. -------- FINAL REPORT -------- Dictated By: Nicko Garcia Dictated Date: 02/23/2024 13:07 ET Assigned Physician: Nicko Garcia Reviewed and Electronically Signed By: Nicko Garcia Signed Date: 02/23/2024 13:10 ET Workstation ID: [id number] Transcribed By: Self Edit Transcribed Date: 02/23/2024 13:07 ET Narrative 02/23/2024 1:10 PM EST HISTORY: RIGHT HEEL PAIN TECHNIQUE: AP, lateral, and oblique radiographs of the right foot COMPARISON: None FINDINGS: ?? The foot demonstrates normal mineralization with no fracture or malalignment. ??The visualized articulations are normal. ??Enthesopathy at the calcaneus. ??No significant soft tissue swelling is identified. Procedure Note Nicko Garcia MD - 02/23/2024 HISTORY: RIGHT HEEL PAIN TECHNIQUE: AP, lateral, and oblique radiographs of the right foot COMPARISON: None FINDINGS: The foot demonstrates normal mineralization with no fracture ormalalignment. The visualized articulations are normal. Enthesopathy atthe calcaneus. No significant soft tissue swelling is identified. IMPRESSION: No acute fracture or dislocation of the right foot. Enthesopathy of the calcaneus. -------- FINAL REPORT -------- Dictated By: Nicko Garcia Dictated Date: 02/23/2024 13:07 ET Assigned Physician: Nicko Garica Reviewed and Electronically Signed By: Nicko Garcia Signed Date: 02/23/2024 13:10 ET Workstation ID: [id number] Transcribed By: Self Edit Transcribed Date: 02/23/2024 13:07 ET us Saji Cage MD IMG XR PROCEDURES Final Res ult * Hepatitis C Screening (11/18/2023) Hepatitis C Screening Abstracted Historical Provider HEALTH MAINTENANCE Final Result * Annual BMP Blood Test (10/05/2023) Pathologist [facility] Annual BMP Blood Test Abstracted us Historical Provider HEALTH MAINTENANCE Final Result * Depression Screening (10/05/2023) Pathologist [facility] Depression Screening Abstracted us Historical Provider HEALTH MAINTENANCE Final Result from Last 3 Months or Most Recently Relevant to Health Maintenance Insurance [facility] [employer] Care Teams Servicenow Administrator Relationship Specialty Start Date End Date Saji Cage MD [address] [place] [address] PCP - General 04/01/23
--- OUTSIDE RECORDS SUMMARY | 2024-04-27 10:35 | XMS_ITS | Encounter Summary ---
Author Organization [facility] Address [address] [place] [address] Care Team Providers Care Crop Or Grain Farmworker Name Role Phone Saji Cage MD Primary Care Provider +- [phone] Reason for Referral * Medications - Denied Specialty Diagnoses / Procedures Referred By Contac t Referred To Contact Diagnoses Class 3 severe obesity due to excess calories with body mass index (BMI) of 50.0 to 59.9 in adult, unspecified whether serious comorbidity present (CMS/HCC) EULALIO (obstructive sleep apnea) Miranda Rayo PA [address] [address] Phone: tel: fax: Referral ID Status Reason Start Date Expiration Date Visits Re quested Visits Authorized [id number] Denied 1 1 Reason for Visit * Reason Comments Obesity Medical weight manag ement * Consultation (Routine) - Closed Specialty Diagnoses / Procedures Referred By Contac t Referred To Contact Family Nutrition Services / Bariatrics Diagnoses Class 3 severe obesity due to excess calories with body mass index (BMI) of 50.0 to 59.9 in adult, unspecified whether serious comorbidity present (CMS/HCC) Saji Cage MD [address] [place] [address] Phone: tel: fax: Bariatric Surgery - [place] [address] [address] Phone: tel: fax: Referral ID Status Reason Start Date Expiration Date V isits Requested Visits Authorized [id number] Closed Specialty Services Required 04/09/2024 04/09/2025 1 1 Encounter Details Date Type Department Care Team ([facility] Contact Info) Description 04/13/2024 10:30 AM EST Consult Bariatric Surgery - [place] 175 [facility] [address] [place] [phone] Miranda Rayo PA 271 [facility] [address] [place] [address] EULALIO (obstructive sleep apnea) (Primary Dx); Class 3 severe obesity due to excess calories with body mass index (BMI) of 50.0 to 59.9 in adult, unspecified whether serious comorbidity present (CMS/HCC); Primary hypertension Social History Tobacco Use Types Packs/Day Years [...] AM EST documented as of this encounter Last Filed Vital Signs Vital Sign Reading Time Taken Comments Blood Pressure 154/72 04/13/2024 10:30 AM EST Pulse 62 04/13/2024 10:30 AM EST Temperature - - Respiratory Rate - - Oxygen Saturation - - Inhaled Oxygen Concentration - - Weight 152 kg (334 lb) 04/13/2024 10:30 AM EST Height 167.6 cm (5' 6 ) 04/13/2024 10:30 AM EST Body Mass Index 53.91 04/13/2024 10:30 AM EST documented in this encounter Ordered Prescriptions Prescription Sig Dispense Quantity Refills Last Filled Start Date End Date tirzepatide, weight loss, (Zepbound) 2.5 mg/0.5 mL injectionIndication s:Class 3 severe obesity due to excess calories with body mass index (BMI) of 50.0 to 59.9 in adult, unspecified whether serious comorbidity present (CMS/[facility]),EULALIO (obstructive sleep apnea) Inject 0.5 mL (2.5 mg total) under the skin every 7 (seven) days. 2 mL 04/13/2024 documented in this encounter Progress Notes * YEIMY Barrios - 04/13/2024 10:30 AM EST Migel Hansen is a 54 y.o. year old male who presents for follow up regarding obesity. HPI: Migel Hansen is being seen for weight mgmt Interested in: medication or surgery Goals of Program: under 200 lbs Referred by: PCP Weight has fluctuated many years Power lifted during pre-ASH Was running 10 miles per day at that point Gotten under 200 lbs 3x in his life Needs bilateral knee replacements - can't have until loses weight Recently was 350 lbs Has lost 20 lbs on his own Eating Habits: Smoothies morning and night Physical Activity: Not currently as active as previously Ambulates w/ cane PMHx: Fatty liver COPD HLD HTN GERD Medications: Albuterol PSHx: Penelope 2011 Tonsillectomy MRSA wound debridement on sacrum Social Habits: No alcohol use 1/2 PPD smoker - quit 3x in his life Occasional marijuana use Out of work since ASH Lives w/ father Has 2 children - single parent, lots of stress Body mass index is 53.91 kg/m??. ROS: GENERAL: No malaise, significant unintentional weight loss, fever, chills or night sweats. RESPIRATORY: No cough, wheezing or shortness of breath CARDIOVASCULAR: No chest pain, leg swelling or palpitations. GI: No abdominal discomfort, nausea, vomiting, or change in bowel habits. : No dysuria, frequency or incontinence. SKIN: No lesions, rash or itching. HEMATOLOGY/LYMPHOLOGY No prolonged bleeding, easy bruisability or swollen nodes. MUSCULOSKELETAL: No abnormalities. NEURO: No abnormalities. The remainder of the review of systems is noncontributory PAST MEDICAL HISTORY: Patient Active Problem List Diagnosis Tear of medial meniscus of right knee Skin lumps Right medial knee pain Primary hypertension Pain of left calf EULALIO (obstructive sleep apnea) Nausea Left hand pain Diarrhea Cigarette smoker motivated to quit Bloating PTSD (post-traumatic stress disorder) Anxiety Anxiety and depression Class 3 severe obesity due to excess calories with serious comorbidity and body mass index (BMI) of50.0 to 59.9 in adult ([facility]) PAST SURGICAL HISTORY: Past Surgical History: Procedure Laterality Date CHOLECYSTECTOMY PROCEDURE: HISTORICAL CHOLECYSTECTOMY KNEE SURGERY Right PROCEDURE: HISTORICAL KNEE SURGERY TONSILLECTOMY PROCEDURE: HISTORICAL TONSILLECTOMY SOCIAL HISTORY: Social History Tobacco Use Smoking status: Every Day Smokeless tobacco: Not on file Substance Use Topics Alcohol use: Never FAMILY HISTORY: Family History Problem Relation Name Age of Onset Hypertension Mother Hypertension Father Diabetes Father Glaucoma Father Other (Other: AUTISM) Son Other (Other: AUTISM) Daughter Family Status Relation Name Status Mother (Not Specified) Father (Not Specified) Son Alive Daughter Alive No partnership data on file MEDICATIONS: There are no discontinued medications. ACTIVE MEDICATIONS: No outpatient medications have been marked as taking for the 04/13/24 encounter (Consult) with YEIMY Barrios. ALLERGIES: No Known Allergies PHYSICAL EXAM: Visit Vitals BP (!) 154/72 Pulse 62 Ht 1.676 m (66 ) Wt 152 kg (334 lb) BMI 53.91 kg/m?? Smoking Status Every Day BSA 2.49 m?? APPEARANCE: Alert and in no acute distress EYES: Conjunctiva normal and sclera normal and anicteric. LUNG: Chest no retractions. ABDOMEN: Soft, non-tender, without organomegaly or palpable masses. EXTREMITIES: Extremities warm and well perfused without clubbing, cyanosis, or edema. SKIN: Skin color and texture normal. No rashes or lesions. ASSESSMENT: 1. EULALIO (obstructive sleep apnea) 2. Class 3 severe obesity due to excess calories with body mass index (BMI) of 50.0 to 59.9 in adult, unspecified whether serious comorbidity present ([facility]) 3. Primary hypertension PLAN: 1. Obesity - The patient is a good candidate for medical weight management given a BMI of 53.91 with the following comorbid conditions EULALIO They remain dedicated to improving their health and quality of life as well as remaining physicallyactive. I have had a long discussion with the patient regarding medical weight management which includes both oral medications including stimulants/appetite suppressants versus injectable GLP-1 medications. Oral stimulant suppressants are meant to be used short-term and studies have shown that obesity needs to be treated as a chronic condition. We have decided to proceed with injectable GIP/GLP-1 medication - Zepbound The risks and benefits of this medication were discussed in length with the patient. Benefits include weight loss and overall healthier lifestyle with he hopes of improving any co morbid conditions. Risks include nausea/vomiting, diarrhea, injection site reaction, gastroparesis. We have also discussed the potential for thyroid cancer and multiple endocrine neoplasia; patient denies family history of either condition. We discussed that this medication should be used long-term and that obesity will be treated as a chronic condition. If and when patient stops this medication weight may come back. The patient will follow-up in the office every 4 weeks for a weight check and potential dose titration The patient will also continue to follow-up with the dietitian to ensure that they are working on proper eating habits in addition to using the medication. In female patients of childbearing age, we did discuss the changes to fertility as a result of significant weight loss; this can increase fertility We do not recommend patient's become or attempt to become while on weight loss medication Medication should be stopped at least 2 months prior to attempting to conceive If they do become while on medication, they should stop and follow up with the office and OBGYN as well They should consult with their RECEPTIONIST SCHEDULER in regard to control during this timeframe I discussed the sleeve gastrectomy versus the gastric bypass with the indications, benefits, potential risks and complications. I discussed the advantages and disadvantages of each procedure comparativley. We discussed expected weight loss with each procedure. General surgical risks include but are not limited to damage to surrounding organs, deep venous thrombosis, pulmonary embolism and . Procedural risks include development or worsening of GERD, anastomotic leaks, anastomotic or external bleeding leading to a need for reoperation, severe diarrhea, malabsorption that can result in neuropathy, bone disease or anemia, bowel obstruction due to adhesions or internal hernia, marginal ulceration, and nini limb syndrome. We discussed the importance of post op vitamin supplementation. The patient will start our program with a nutritional counseling, psychological evaluation,support groups and information meetings. They are expected to pre operativley improve upon their current lifestyle and eating habits in an attempt to lose 5-10% of their current weight Understands that they cannot gain weight while in the program Understands routine nicotine screening is performed and patients are expected to not smoke pre or post op. I will see the patient again once the program has been completed to verify requirements have been fufilled and in order to submit to the insurance company. In female patients of childbearing age, we did discuss the changes to fertility as a result of significant weight loss; this can increase fertility We do not recommend patient's become or attempt to become within 2 years of bariatric surgery soon after bariatric surgery can result in complications including but not limited to miscarriage, growth restriction, labor/delivery, significant vitamin deficiencies impacting , etc They should consult with their RECEPTIONIST SCHEDULER in regard to control during this timeframe Medication and lab orders: Orders Placed This Encounter Procedures Comprehensive metabolic panel CBC and differential Cortisol Folate Ferritin Helicobacter pylori breath test Hemoglobin A1c Iron and TIBC Vitamin D 25 hydroxy Vitamin B12 Vitamin B1 Thyroid stimulating hormone Nicotine and cotinine Magnesium Lipid panel with reflex to direct LDL Other orders: AMB REFERRAL TO WEIGHT MANAGEMENT cc: Saji Cage MD documented in this encounter Plan of Treatment Upcoming Encounters Date Type Department Care Team (Late st Contact Info) Description 05/01/2024 2:45 PM EST Consult Orthopedic Surgery - [place] [address] [address] Byron Kohli, CHANTAL [address] [address] 05/02/2024 9:00 AM EST Consult Bariatric Surgery - [place] [address] [phone] Earnestine Lin, RD [address] [address] 05/04/2024 1:00 PM EST Procedure visit General Surgery [facility] [address] [phone] Cleveland Schreiber, [address] [address] 05/26/2024 11:30 AM EDT Office Visit Adult Medicine [address] [place] [address] Saji Cage MD 444 [place] [address] 05/30/2024 11:30 AM EDT Office Visit Bariatric Surgery [facility] 175 [facility] 120 [place] [phone] Miranda Rayo PA 271 [facility] 120 [place] [address] 06/08/2024 3:00 PM EDT Appointment [facility] Endoscopy 271 [place] [phone] Neyda Blair MD 175 [facility] 200 [place] [address] 07/19/2024 9:30 AM EDT Office Visit Orthopedic Surgery [facility] 160 175 [facility] 160 [place] [phone] Nathalia Ramires PA 175 [facility] 160 [place] [address] Scheduled Orders Name Type Priority Associated Diagnoses Orde r Schedule Comprehensive metabolic panel Lab Routine Class 3 severe obesity due to excess calories with body mass index (BMI) of 50.0 to 59.9 in adult, unspecified whether serious comorbidity present (CMS/HCC) 1 Occurrences starting 04/13/2024 until 04/13/2025 CBC and differential Lab Routine Class 3 severe obesity due to excess calories with body mass index (BMI) of 50.0 to 59.9 in adult, unspecified whether serious comorbidity present (CMS/HCC) 1 Occurrences starting 04/13/2024 until 04/13/2025 Cortisol Lab Routine Class 3 severe obesity due to excess calories with body mass index (BMI) of 50.0 to 59.9 in adult, unspecified whether serious comorbidity present (CMS/HCC) 1 Occurrences starting 04/13/2024 until 04/13/2025 Folate Lab Routine Class 3 severe obesity due to excess calories with body mass index (BMI) of 50.0 to 59.9 in adult, unspecified whether serious comorbidity present (CMS/HCC) 1 Occurrences starting 04/13/2024 until 04/13/2025 Ferritin Lab Routine Class 3 severe obesity due to excess calories with body mass index (BMI) of 50.0 to 59.9 in adult, unspecified whether serious comorbidity present (CMS/HCC) 1 Occurrences starting 04/13/2024 until 04/13/2025 Helicobacter pylori breath test Lab Routine Class 3 severe obesity due to excess calories with body mass index (BMI) of 50.0 to 59.9 in adult, unspecified whether serious comorbidity present (CMS/HCC) 1 Occurrences starting 04/13/2024 until 04/13/2025 Hemoglobin A1c Lab Routine Class 3 severe obesity due to excess calories with body mass index (BMI) of 50.0 to 59.9 in adult, unspecified whether serious comorbidity present (CMS/HCC) 1 Occurrences starting 04/13/2024 until 04/13/2025 Iron and TIBC Lab Routine Class 3 severe obesity due to excess calories with body mass index (BMI) of 50.0 to 59.9 in adult, unspecified whether serious comorbidity present (CMS/HCC) 1 Occurrences starting 04/13/2024 until 04/13/2025 Vitamin D 25 hydroxy Lab Routine Class 3 severe obesity due to excess calories with body mass index (BMI) of 50.0 to 59.9 in adult, unspecified whether serious comorbidity present (CMS/HCC) 1 Occurrences starting 04/13/2024 until 04/13/2025 Vitamin B12 Lab Routine Class 3 severe obesity due to excess calories with body mass index (BMI) of 50.0 to 59.9 in adult, unspecified whether serious comorbidity present (CMS/HCC) 1 Occurrences starting 04/13/2024 until 04/13/2025 Vitamin B1 Lab Routine Class 3 severe obesity due to excess calories with body mass index (BMI) of 50.0 to 59.9 in adult, unspecified whether serious comorbidity present (CMS/HCC) 1 Occurrences starting 04/13/2024 until 04/13/2025 Thyroid stimulating hormone Lab Routine Class 3 severe obesity due to excess calories with body mass index (BMI) of 50.0 to 59.9 in adult, unspecified whether serious comorbidity present (CMS/HCC) 1 Occurrences starting 04/13/2024 until 04/13/2025 Nicotine and cotinine Lab Routine Class 3 severe obesity due to excess calories with body mass index (BMI) of 50.0 to 59.9 in adult, unspecified whether serious comorbidity present (CMS/HCC) 1 Occurrences starting 04/13/2024 until 04/13/2025 Magnesium Lab Routine Class 3 severe obesity due to excess calories with body mass index (BMI) of 50.0 to 59.9 in adult, unspecified whether serious comorbidity present (CMS/HCC) 1 Occurrences starting 04/13/2024 until 04/13/2025 Lipid panel with reflex to direct LDL Lab Routine Class 3 severe obesity due to excess calories with body mass index (BMI) of 50.0 to 59.9 in adult, unspecified whether serious comorbidity present (CMS/HCC) 1 Occurrences starting 04/13/2024 until 04/13/2025 documented as of this encounter Visit Diagnoses Diagnosis EULALIO (obstructive sleep apnea)- Primary Obstructive sleep apnea (adult) (pediatric) Class 3 severe obesity due to excess calories with body mass index (BMI) of 50.0 to 59.9 in adult, unspecified whether serious comorbidity present (CMS/HCC) Primary hypertension Unspecified essential hypertension documented in this encounter Orders Outpatient Referral Count Last Ordered Date Fir st Ordered Date AMB REFERRAL TO WEIGHT MANAGEMENT 1 025 documented in this encounter Care Teams Crop Or Grain Farmworker Relationship Specialty Start Date End Date Saji Cage MD [address] [place] [address] PCP - General 04/01/23 documented as of this encounter
--- OUTSIDE RECORDS SUMMARY | 2024-04-27 10:35 | XMS_ITS | Encounter Summary ---
Author Organization [facility] Address [address] [place] [address] Care Team Providers Care Registered Veterinary Technician Name Role Phone Saji Cage MD Primary Care Provider [phone] Reason for Visit * Reason Comments Mass Encounter Details Date Type Department Care Team ([facility] Contact Info) Description 03/30/2024 2:15 PM EST Office Visit General Surgery - [place] 175 [facility] [address] [place] [phone] Cleveland Schreiber, DO 175 [facility] [address] [place] [phone] Multiple lipomas (Primary Dx) Social History Tobacco Use Types [...] Record ed Within the last 3 months, mac w many times did you visit the [...] your loved ones. For example, child care aide or elderly care for an older adult? [...] Sign Reading Time Taken Comments Blood Pressure 151/76 03/30/2024 2:07 PM EST Pulse 63 03/30/2024 2:07 PM EST Temperature - - Respiratory Rate - - Oxygen Saturation - - Inhaled Oxygen Concentration - - Weight 152 kg (335 lb) 03/30/2024 2:07 PM EST Height 167.6 cm (5' 6 ) 03/30/2024 2:07 PM EST Body Mass Index 54.07 03/30/2024 2:07 PM EST documented in this encounter Progress Notes * Cleveland Schreiber DO - 03/30/2024 2:15 PM EST Reason for visit: Follow-up - history of multiple lipomas HPI: This is a pleasant 54 y.o. patient who was previously evaluated in my office for multiple lipomas chest wall and abdomen status post excision. He has found a couple others that we did not notice before. Noted on left upper extremity and as well as left chest wall. He reports that these are bothersome to him and tender. There have been no interval changes in past medical/surgical history, medications, social history, or family medical history. Please refer to EMR or my prior note for additional details. ROS GENERAL: No significant weight loss or fever RESPIRATORY: No cough or shortness of breath CARDIOVASCULAR: No chest pain GI: No abdominal discomfort, see HPI SKIN: No rash, jaundice ACTIVE MEDICATIONS: Medication list was reviewed/updated with the patient. No outpatient medications have been marked as taking for the 03/30/24 encounter (Office Visit) with Cleveland Schreiber DO. ALLERGIES: @ALL@ PHYSICAL EXAM: Visit Vitals BP (!) 151/76 Pulse 63 Ht 1.676 m (66 ) Wt 152 kg (335 lb) BMI 54.07 kg/m?? Smoking Status Every Day BSA 2.49 m?? APPEARANCE: Alert and in no acute distress EYES: conjunctiva and sclera normal. HEART: RRR LUNG: non-labored respirations, patient is comfortable on room air without adventitious sounds ABDOMEN: benign well-healed incision scar EXTREMITIES: Small lipoma left upper extremity 2 cm NEURO: Awake, alert and oriented, moves all extremities SKIN: Left chest wall lipoma roughly 2 and half centimeters in size mobile nontender LABS: No results found for: WBC , HGB , HCT , MCV Lab Results Component Value Date ALKPHOS 99 03/03/2024 IMAGING: None ................................................................................ ............................................................. ASSESSMENT 1. Multiple lipomas PLAN: 1. Patient has multiple lipomas with recently found left upper extremity and left chest wall lipomathat are bothersome. He wishes to undergo excision of these lipomatous tumors under local anesthetic. Explained the risk procedure include risk of bleeding, infection, damage surrounding structures need for further procedures he understands these risks wishes to move forward with surgery. It was a pleasure seeing @TITLE@ Migel Hansen at the [facility] today. The patient has been instructed to call with any additional questions or concerns. @KJG@ cc: documented in this encounter Plan of Treatment Upcoming Encounters Date Type Department Care Team (Late st Contact Info) Description 05/01/2024 2:45 PM EST Consult Orthopedic Surgery - [place] [address] [phone] Byron Kohli, DPRose Marie [address] [address] 05/02/2024 9:00 AM EST Consult Bariatric Surgery - [place] [address] [phone] Earnestine Lin, RD [address] [phone] 05/04/2024 1:00 PM EST Procedure visit General Surgery [facility] [address] [phone] Cleveland Schreiber DO [address] [address] 05/26/2024 11:30 AM EDT Office Visit Adult Medicine [address] [place] [address] Saji Cage MD 444 [place], [place] 05/30/2024 11:30 AM EDT Office Visit Bariatric Surgery [facility] 175 [facility] 120 [place] [phone] Miranda Rayo PA 271 [facility] 120 [place] [address] 06/08/2024 3:00 PM EDT Appointment [facility] Endoscopy 271 [place] [phone] Neyda Blair MD 175 [facility] 200 [place] [address] 07/19/2024 9:30 AM EDT Office Visit Orthopedic Surgery [facility] 160 175 [facility] 160 [place] [phone] Nathalia Ramires PA 175 [facility] 160 [place] [address] documented as of this encounter Visit Diagnoses Diagnosis Multiple lipomas- Primary documented in this encounter Care Teams Registered Veterinary Technician Relationship Specialty Start Date End Date Saji Cage MD 444 [facility] [place] [address] PCP - General 04/01/23 documented as of this encounter
--- OUTSIDE RECORDS SUMMARY | 2024-04-27 10:35 | XMS_ITS | Encounter Summary ---
Author Organization [place] [address] Care Team Providers Care Braid Cutter Name Role Phone Sjai Cage MD Primary Care Provider [phone] Encounter Details Date Type Department Care Team (Late st Contact Info) Description 01/06/2024 1:30 PM EDT Hospital Encounter TH HISTORIC ENCOUNTERS EASTERN CONVERSION ONLY Alberto Lynn MD 175 [facility] 160 [place] [address] Social History Tobacco Use Types Packs/Day Years [...] your loved ones. For example, child care leader or elderly care for an older adult? [...] 2:45 PM EST Consult Orthopedic Surgery [place] [address] [phone] Byron Kohli DPM [address] [address] 05/02/2024 9:00 AM EST Consult Bariatric Surgery - [place] [address] [phone] Earnestine Lin, RD [address] [phone] 05/04/2024 1:00 PM EST Procedure visit General Surgery - [place] [address] [phone] Cleveland Schreiber, DO [address] [address] 05/26/2024 11:30 AM EDT Office Visit Adult Medicine [facility] 444 [place] [address] Saji Cage MD 444 [place] [address] 05/30/2024 11:30 AM EDT Office Visit Bariatric Surgery - [place] [address] [phone] Miranda Rayo PA [address] [address] 06/08/2024 3:00 PM EDT Appointment [facility] 271 [place] [phone] Neyda Blair MD [address] [address] 07/19/2024 9:30 AM EDT Office Visit Orthopedic Surgery - [place] [address] [phone] Nathalia Ramires PA [address] [address] documented as of this encounter Visit Diagnoses Not on filedocumented in this encounter Care Teams Braid Cutter Relationship Specialty Start Date End Date Saji Cage MD [address] [place] [address] PCP - General 04/01/23 documented as of this encounter
--- OUTSIDE RECORDS SUMMARY | 2024-04-27 10:35 | XMS_ITS | Encounter Summary ---
Author Organization [facility] Address [address] [place] [address] Care Team Providers Care Geodetic Computator Name Role Phone Saji Cage MD Primary Care Provider [phone] Reason for Referral * Consultation (Routine) - Closed Specialty Diagnoses / Procedures Referred By Contac t Referred To Contact Family Nutrition Services / Bariatrics Diagnoses Class 3 severe obesity due to excess calories with body mass index (BMI) of 50.0 to 59.9 in adult, unspecified whether serious comorbidity present (CMS/HCC) Saji Cage MD 4 [place] [address] Phone: tel: fax: Bariatric Surgery [address] 120 [place] [address] Phone: tel: fax: Referral ID Status Reason Start Date Expiration Date V isits Requested Visits Authorized [id number] Closed Specialty Services Required 04/09/2024 04/09/2025 1 1 Encounter Details Date Type Department Care Team ([facility] Contact Info) Description 03/30/2024 Telephone Adult Medicine [facility] 444 [place] [address] Saji Cage MD 4 [place] [address] Social History Tobacco Use Types Packs/Day Years [...] as of this encounter Progress Notes * Yanira Mar MA - 03/31/2024 10:56 AM EST As of 03/08/24 [employer] no longer covers wegovy. Pt must first try phentermine unless they is rationale as to why pt cannot try the phentermine. Uncontrolled hypertension Thank you Please reply back to [facility] (Prior Auth [place]) Yanira Schafer [facility] Prior Authorization Ext [id number] * Sari Negron - 03/30/2024 11:54 AM EST Prior Authorization for Medication-do not complete and send this encounter unless you have the fax from the pharmacy. Is this a Cover My Meds request: Name of Medication WEGOVY Dose of Medication 0.25MG What is the RX # from the faxed refill? HAS NOT BEEN FILLED How does patient take this med? INJECTION PEN What Pharmacy did the fax come from: [address] [place] [address] Pharmacy fax #: N/A [employer] Party Information from fax: What Prescription Plan does the patient have? MARY DOUGHERTY/KRYSTALN if applicable: N/A Cardholder ID: [id number] Person Code: Relationship Code: Help desk phone: documented in this encounter Plan of Treatment Upcoming Encounters Date Type Department Care Team (Late st Contact Info) Description 05/01/2024 2:45 PM EST Consult Orthopedic Surgery - [place] 250 175 [facility] 250 [place] [phone] Byron Kohli, CHANTAL 175 [facility] 250 [place] [address] 05/02/2024 9:00 AM EST Consult Bariatric Surgery [facility] [address] [phone] Earnestine Lin, SAMEERA [address] [phone] 05/04/2024 1:00 PM EST Procedure visit General Surgery [facility] [address] [phone] Cleveland Schreiber, DO [address] [address] 05/26/2024 11:30 AM EDT Office Visit Adult Medicine [facility] 444 [place] [address] Saji Cage MD 444 [place] [address] 05/30/2024 11:30 AM EDT Office Visit Bariatric Surgery [facility] [address] [phone] Miranda Rayo PA [address] [address] 06/08/2024 3:00 PM EDT Appointment [facility] 271 [place] [phone] Neyda Blair MD 175 [facility] 200 [place] [address] 07/19/2024 9:30 AM EDT Office Visit Orthopedic Surgery [facility] 160 175 [facility] 160 [place] [phone] Nathalia Ramires PA 175 [facility] 160 [place] [address] Scheduled Referrals Name Type Priority Associated Diagnoses Order Schedule Ambulatory referral to Weight Management Outpatient Referral Routine Class 3 severe obesity due to excess calories with body mass index (BMI) of 50.0 to 59.9 in adult, unspecified whether serious comorbidity present (CMS/HCC) 1 Occurrences starting 04/09/2024 until 04/09/2025 documented as of this encounter Visit Diagnoses Diagnosis Class 3 severe obesity due to excess calories with body mass index (BMI) of 50.0 to 59.9 in adult, unspecified whether serious comorbidity present (CMS/HCC)- Primary documented in this encounter Care Teams Geodetic Computator Relationship Specialty Start Date End Date Saji Cage MD [address] [place] [address] PCP - General 04/01/23 documented as of this encounter
--- OUTSIDE RECORDS SUMMARY | 2024-04-27 10:35 | XMS_ITS | Encounter Summary ---
Author Organization [facility] Address [address] [place] [address] Care Team Providers Care Inspection Clerk Name Role Phone Saji Cage MD Primary Care Provider [phone] Reason for Visit * Reason Onset Date Comments prior authorization 04/21/2024 05/04/2024 Bashir Schreiber Encounter Details Date Type Department Care Team ([facility] Contact Info) Description 04/21/2024 Telephone General Surgery - [place] 175 [facility] [address] [place] [phone] Cleveland Schreiber D, DO 175 [facility] [address] [place] [phone] prior authorization (05/04/2024 Dr. Schreiber) Social History Tobacco Use Types Packs/Day Years [...] care for your loved ones. For example, director of early childhood education or elderly care for an older adult? [...] as of this encounter Progress Notes * Nicole Hernandez - 04/25/2024 4:21 PM EST I received an notification that no authorization is required. * Nicole Hernandez - 04/21/2024 11:01 AM [place] [id number] documented in this encounter Plan of Treatment Upcoming Encounters Date Type Department Care Team (Late st Contact Info) Description 05/01/2024 2:45 PM EST Consult Orthopedic Surgery - [place] [address] [phone] Byron Kohli, CHANTAL [address] [address] 05/02/2024 9:00 AM EST Consult Bariatric Surgery - [address] [phone] [phone] 05/04/2024 1:00 PM EST Procedure visit General Surgery - [address] [phone] Cleveland Schreiber, [address] [address] 05/26/2024 11:30 AM EDT Office Visit Adult Medicine [facility] 444 [place] [address] Saji Cage MD 4 [place] [address] 05/30/2024 11:30 AM EDT Office Visit Bariatric Surgery - [place] [address] [phone] Miranda Rayo PA [address] [address] 06/08/2024 3:00 PM EDT Appointment [facility] 271 [place] [phone] Neyda Blair MD 175 [facility] 200 [place] [address] 07/19/2024 9:30 AM EDT Office Visit Orthopedic Surgery - [place] 160 175 [facility] 160 [place] [phone] Nathalia Ramires PA 175 [facility] 160 [place] [address] documented as of this encounter Visit Diagnoses Not on filedocumented in this encounter Additional Health Concerns Assessment Noted Time PHQ-9 Depression Total Score: 15 04/19/ 025 11:46 AM EST documented as of this encounter Care Teams Inspection Clerk Relationship Specialty Start Date End Date Saji Cage MD [address] [place] [address] PCP - General 04/01/23 documented as of this encounter
--- OUTSIDE RECORDS SUMMARY | 2024-04-27 10:35 | XMS_ITS | Encounter Summary ---
Author Organization [employer] Address [address] [place] [address] Care Team Providers Care Cloth Examiner Hand Name Role Phone Saji Cage MD Primary Care Provider Reason for Visit * Reason Onset Date Comments Results 04/20/2024 Encounter Details Date Type Department Care Team ([facility] Contact Info) Description 04/20/[address] [facility] 444 [place] [address] Saji Cage MD 444 [place] [address] Results Social History Tobacco Use Types Packs/Day Years [...] care for your loved ones. For example, attendant children's institution or elderly care for an older adult? [...] as of this encounter Progress Notes * Natalia De La Vega MA - 04/21/2024 1:22 PM EST Please review result * Sari Negron - 04/20/2024 1:24 PM EST Patient call requires triage: Symptoms patient is presenting: patient had pulmonary test done last month. Results are in the mychart however patient has not received any letter or any phone calls regarding test results or future treatment options. Patient only found out that result were uploading due to seeing on my chart. However patient would like call back explaining and going over results. How long has patient had these symptoms?: For ALL patients calling to schedule any appointment (routine, sick visit, follow up, consult, etc.) in the outpatient setting please ask the following questions: Do you have fever of higher than 101, sore throat with difficulty swallowing or severe shortness ofbreath? no If YES to any of these above symptoms, send a message to triage and do not book. Red dot. If no, an audio or video visit should be booked. Have you had close contact with someone with Coronavirus in the last 14 days? no Have you traveled abroad? no Have you traveled recently to another state outside of [place], [place], [place], [place], [place], [place], [place]? no o If yes, did you quarantine for 14 days or have a negative covid test? no If yes to any of the above, patient is not to be scheduled in office until after 14 day quarantine or negative covid test. If pain or injury related was it due to an accident at work or from a motor vehicle accident? If yes, date of accident/Injury: No If yes, gather 3rd green party insurance information Third Green Party Information: not applicable PCP: Saji Cage MD Payor: [facility] PLAN / Plan: [facility] MEDICAID / Product Type: *No Product type* / documented in this encounter Plan of Treatment Upcoming Encounters Date Type Department Care Team (Late st Contact Info) Description 05/01/2024 2:45 PM EST Consult Orthopedic Surgery - [place] 250 175 [facility] 250 [place] [phone] Byron Kohli DPM 175 [facility] [address] [place] [address] 05/02/2024 9:00 AM EST Consult Bariatric Surgery - [place] [address] [phone] Earnestine Lin, RD [address] [phone] 05/04/2024 1:00 PM EST Procedure visit General Surgery [facility] [address] [phone] Cleveland Schreiber, DO [address] [phone] 05/26/2024 11:30 AM EDT Office Visit Adult Medicine [facility] 444 [place] [address] Saji Cage MD 444 [place] [address] 05/30/2024 11:30 AM EDT Office Visit Bariatric Surgery [facility] [address] [phone] Miranda Rayo PA [address] [address] 06/08/2024 3:00 PM EDT Appointment [facility] 271 [place] [phone] Neyda Blair MD 175 [facility] 200 [place] [address] 07/19/2024 9:30 AM EDT Office Visit Orthopedic Surgery [facility] [address] [phone] Nathalia Ramires PA [address] [address] documented as of this encounter Visit Diagnoses Not on filedocumented in this encounter Additional Health Concerns Assessment Noted Time PHQ-9 Depression Total Score: 15 02/2 025 11:46 AM EST documented as of this encounter Care Teams Cloth Examiner Hand Relationship Specialty Start Date End Date Saji Cage MD [address] [place] [address] PCP - General 04/01/23 documented as of this encounter
== END 2024-04-27 11:01 | disposition home or self-care (01) ==
PROVIDERS: Absent Provider Physician Assistant Medical; PCP Internal Medicine; Visit Provider Physician Assistant Medical
DX: G47.33 Obstructive sleep apnea (adult) (pediatric) (principal); E66.01 Morbid (severe) obesity due to excess calories; Z68.43 Body mass index [BMI] 50.0-59.9, adult; M54.32 Sciatica, left side; I10 Essential (primary) hypertension
CPT/HCPCS: 99214

== ENCOUNTER → 2024-04-27 09:47 | Outpatient (BNVA) | payer OTHER, SELFPAY | PROVIDERS: Absent Provider Physician Assistant Medical; PCP Internal Medicine; Visit Provider Physician Assistant Medical | DX: G47.33 Obstructive sleep apnea (adult) (pediatric) (principal); E66.01 Morbid (severe) obesity due to excess calories; M54.32 Sciatica, left side; I10 Essential (primary) hypertension; Z68.43 Body mass index [BMI] 50.0-59.9, adult | CPT/HCPCS: 99212 ==

== ENCOUNTER 2024-07-24 10:11 | Outpatient (AMB) | payer OTHER, SELFPAY ==
[2024-07-24 10:13] VITALS: PULSE 59; O2SAT 96; BMI 50.0
--- NOTE | 2024-07-24 10:13 | MHC.OFFVIS ---
Vital Signs 07/24/24 10:13 Height 5 ft 5 in Weight 300 lb 8 oz BMI 50.0 Pulse 59 Pulse Source Pulse Oximeter Pulse Oximetry (%) 96 Oxygen Delivery Method Room Air Intake Visit Reasons: 3 mo follow up Intake Note: Patient presents follow up EULALIO medication. Compliance in chart(90/90 days, >=4hrs-87 days, Median leaks- 23.9, AHI- 3.4). Allergies No Known Allergies Allergy (Verified 07/24/24 10:17) HPI Comments Details: 54 y/o male comes for follow up of sleep apnea. Ever has lost 50lbs bc he needs a bilateral TKR. He was diagnosed with COPD and fatty liver disease recently so he quit smoking about 3 weeks ago. Per his orthopedic surgeon his BMI has to decrease to 40 prior to his planned surgery. He plays video games, cleans the house and does laundry to distract himself from smoking. 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 He goes to bed at 8:30pm to 10pm and wakes up at 3 am daily, feeling exhausted most days. He has knee pain with ambulation uses a cane and a rolling walker at home, denies falls. His diet is very poor due to constant GI issues with bile coming up into his throat and constipation then diarrhea (IBD). He had a colonoscopy on the June, no polyps. He has Hemorrhoids and uses more fiber daily, as he has difficulty with BM. Today he weighs 300lbs and is able to control his portion sizes now as he is learning to cook a healthier diet with more vegetables, along with a water fasting diet every other day. 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 [facility] Medical History (Updated 07/24/24 @ 22:55 by Jessika Flores PA-C) Fatty liver COPD (chronic obstructive pulmonary disease) Surgical History History of tonsillectomy Family History Father Diabetes Mother Borderline blood pressure Brother ADHD Sister Arthritis Social History Household Members: Family and Children Housing: Apartment Alcohol intake: current Comment: Ocassionally Patient Tobacco Use Status: Former Tobacco user Years Smoked: 4 Physical Exam Vital Signs: Last Vital Signs Pulse 59 07/24/24 10:13 Pulse Ox 96 07/24/24 10:13 Oxygen Delivery Method Room Air 07/24/24 10:13 BMI result Body Mass Index 50.0 Const General: cooperative and comfortable Nutritional Appearance: obese Orientation/consciousness: patient oriented x3 HEENT Face and sinus: Yes face symmetric Eyes Pupils: Equal, round and reactive pupils present Neck Neck: Yes full ROM Resp Effort & Inspection: normal respiratory effort and able to speak in complete sentences Neuro General: patient oriented x3 and moves all extremities Cranial nerves: Yes Facial sensation intact/muscles of mastication intact, Yes Equal, round and reactive pupils present, Yes Normal accommodation reflex present, Yes Normal facial strength present, Yes Midline tongue present, Yes Ability to bilaterally rotate head present and Yes Ability to bilaterally elevate shoulders present Gait exam (Neuro): Assistive device used Motor exam (neuro): 5/5 motor strength present throughout Psych Appearance: grossly normal Thought content: Normal thought content present Results Reviewed Results Reviewed: EULALIO Compliance Report: 04/18/2024- 07/16/2024 >4 hours 87/90 days 97% Avg use total 7 hours 46 min Cpap press [id number] Leaks median 23.9 and AHI is 3.4/hr Assessment & Plan Assessment & Plan (1) EULALIO (obstructive sleep apnea): Comment: hx of severe degree of sleep apnea 71/hr and 75% O2 Code(s): G47.33 - Obstructive sleep apnea (adult) (pediatric) Category: Medical (2) Morbid obesity with BMI of 50.0-59.9, adult: Code(s): E66.01 - Morbid (severe) obesity due to excess calories; Z68.43 - Body mass index [BMI] 50.0-59.9, adult Category: Medical (3) Irritable mood: Code(s): R45.4 - Irritability and anger Category: Medical Plan Severe eulalio, compliance is emphasized Obsesity, continue to eat a clean diet, walk or swim daily as tolerable, wear a knee brace when walking, for knee pain you may apply voltaran topically, bengay, icy hot or tiger balm as needed. Irritable mood will increase Buproprion from 150mg PO daily to 300mg PO daily in the morning. Essential HTN f/u with PCP Medications: Changed From bupropion HCl XL (Wellbutrin XL) 150 mg PO QAM 30 tabs 4RF R45.4 - Irritability and anger To bupropion HCl XL take one 300mg table daily in the morning. 300 mg PO QAM 3 months 90 tabs 0RF mood irritability MDD 300mg R45.4 - Irritability and anger Patient Instructions: Sleep Hygiene provided: set a scheduled bedtime and wake time to help regulate the circadian rhythm and balance the release of pituitary hormones. Sleep in a dark room, temperatures below 68 degrees, and no devices n bed. Limit caffeinated products 6 hours prior to bed, and limit fluids 2-4 hours prior to bed. Gentle night yoga, diffusing essential oils, and playing soft music can be relaxing. Wash mask, and tubing, change filters and fill reservoir with distilled water. The number one modifiable risk factor for cardiovascular disease is management of hypertension. Coding Level of Care Code Est Pt Level 4 (71369) Diagnoses EULALIO (obstructive sleep apnea) G47.33 Morbid obesity with BMI of 50.0-59.9, adult E66.01; Z68.43 Irritable mood R45.4 Time Spent (min) 30
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
--- OUTSIDE RECORDS SUMMARY | 2024-07-24 10:45 | XMS_ITS | Encounter Summary ---
Author Organization [facility] Address [address] [place] [address] Care Team Providers Care Acetylene Cutter Name Role Phone Saji Cage MD Primary Care Provider [phone]- [phone] Reason for Visit * Reason Onset Date Comments prior auth 07/13/2024 Encounter Details Date Type Department Care Team (Late st Contact Info) Description 07/13/2024 Telephone Adult Medicine [facility] [address] [place] [address] Saji Cage MD 444 [place] [address] prior auth Social History Tobacco Use Types Packs/Day Years [...] as of this encounter Progress Notes * Gia Parish - 07/13/2024 10:45 AM EDT Prior Authorization for Medication-do not complete and send this encounter unless you have the fax from the pharmacy. Is this a Cover My Meds request: Yes -- Solitario Code [id number] Name of Medication wegovy Dose of Medication 0.25MG What is the RX # from the faxed refill? How does patient take this med? Inject 0.25mg under skin every 7 days What Pharmacy did the fax come from: [facility] Pharmacy fax #: [phone] documented in this encounter Plan of Treatment Upcoming Encounters Date Type Department Care Team (Late st Contact Info) Description 08/03/2024 10:30 AM EDT Evaluation Outpatient Rehabilitation [address] [phone] Willy Oneill, PT 08/22/2024 9:45 AM EDT Office Visit Orthopedic Surgery [facility] [address] [phone] Byron Kohli, DPRose Marie [address] [address] 08/31/2024 9:00 AM EDT Office Visit Bariatric Surgery [facility] [address] [phone] Miranda Rayo PA [address] [address] 09/18/2024 10:00 AM EDT Nutrition Bariatric Surgery [facility] [address] [phone] Earnestine Lin, RD [address] [phone] 11/29/2024 8:30 AM EDT Office Visit Adult Medicine [place] - [address] [phone] Svitlana Garcia PA 444 [place], [place] 01/25/2025 1:00 PM EST Office Visit Pulmonolgy - [place] 175 [facility] [address] [place] [phone] Daylin Moore MD 175 [facility] 200 [place] [address] documented as of this encounter Visit Diagnoses Not on filedocumented in this encounter Additional Health Concerns Assessment Noted Time PHQ-9 Depression Total Score: 15 025 11:46 AM EST documented as of this encounter Care Teams Acetylene Cutter Relationship Specialty Start Date End Date Saji Cage MD [address] [place] [address] PCP - General 04/01/23 documented as of this encounter
--- OUTSIDE RECORDS SUMMARY | 2024-07-24 10:45 | XMS_ITS | Encounter Summary ---
Author Organization [facility] Address [address] [place] [address] Care Team Providers Care Surface Boss Name Role Phone Saji Cage MD Primary Care Provider [phone] Reason for Visit * Reason Comments Procedure Encounter Details Date Type Department Care Team (Latest Contact Info) Description 07/19/2024 8:30 AM EDT Procedure visit General Surgery - [place] [address] [phone] Cleveland Schreiber, DO [address] [address] Multiple lipomas (Primary Dx) Social History Tobacco [...] your loved ones. For example, child welfare counselor or elderly care for an older [...] Sign Reading Time Taken Comments Blood Pressure 141/75 07/19/2024 8:22 AM EDT Pulse 64 07/19/2024 8:22 AM EDT Temperature - - Respiratory Rate - - Oxygen Saturation - - Inhaled Oxygen Concentration - - Weight 140 kg (308 lb) 07/19/2024 8:22 AM EDT Height 167.6 cm (5' 5.98 ) 07/19/2024 8:22 AM ED T Body Mass Index 49.74 07/19/2024 8:22 AM EDT documented in this encounter Progress Notes * Mikaela Schaffer MA - 07/19/2024 8:30 AM EDT CARING FOR YOUR WOUND AT HOME: You have surgical glue in place, please leave this on and let them flake off on its own. Some oozing of blood may be normal following your procedure and typically represents old surgical blood making its way out through your incision prior to it fully closing. You may change your dressing earlier than 2 days as needed if you note blood soaking through the bandage. You may shower right away following your procedure, however please do not soak in baths, hot tubs, pools, etc. until after being evaluated at your follow up appointment. After removing your dressing, please make sure to keep your incision clean and dry. Gently wash with soap and water and pat dry with a clean towel. It is best to leave this open to the air, however you may and apply a bandaid or gauze dressing as needed for comfort. If you do not have steri strips in place, please apply a thin layer of antibiotic ointment (bacitracin, neosporin) over the sutures once daily. The area may be sore following the procedure. You may take over the counter pain medications (ex. Tylenol, Ibuprofen) for postoperative discomfort if you have no known contraindications to taking these medications. You may additionally ice the incision site. Carefully watch for signs of potential wound infection such as fevers > 101.4 F, chills, nausea,vomiting, increased pain in the area, surrounding redness, or excessive drainage. Please call the office if any of these symptoms or other concerns arise. You do not have any external sutures to remove, we may follow up in the office on an as-needed basis. The office will call you with pathology results once available. If you have any questions or concerns, please feel free to call the office at [phone]. * Cleveland Schreiber DO - 07/19/2024 8:30 AM EDT REASON FOR VISIT: Lipoma left uppe rextremity and lipoma left chest wall HPI: This patient was previously evaluated in my office for a soft tissue lesion. Given growth and symptoms, excision was deemed appropriate. The risks, alternatives, and benefits of the procedure were again discussed in detail with the patient, including the risk for bleeding, infection, scarring, poorwound healing, recurrence, and nerve injury. PROCEDURE Pre-Operative Dx: Left chest wall lipoma, left upper extremity lipoma Post-Operative Dx: Same Procedure: Excision of lipomatous mass x 2 (lesion size 2.5 cm left chest, 1.5 cm left upper extremity), Indications: As above. Findings: Consistent with subcutaneous lipoma of left chest Description of Procedure: The procedure was described in detail with the patient, including any risks and benefits. Questionswere answered and informed consent was obtained. The location was confirmed with the patient and marked. The area was infiltrated with a 50:50 mix of 1% lidocaine with epinephrine:0.25% marcaine buffered with sodium bicarbonate. The patient was appropriately positioned and the area was prepped and draped in the normal sterile fashion. An incision was created over the mass, which was then sharply dissected free from the surrounding soft tissues. Hemostasis was confirmed. Interrupted deep dermal buried sutures of 3-0 Vicryl were placed. The skin was re-approximated with a running 4-0 monofilament absorbable subcuticular suture. The area was cleaned with sterile saline. The same technique was utilized on the left upper arm to perform the excision of that lipomatous lesion as well. Closure was done the same with Dermabond on the skin. The specimens w sent to Pathology. There were no complications. ASSESSMENT & PLAN: 1. Lipomas x 2 now s/p excision. Patient tolerated the procedure well. Pathology pending. Post-operative instructions, as follows, were discussed with the patient: No bathing/swimming/hot tubs for 2 weeks OTC NSAIDs and ice to the surgical area may be used as needed to decrease swelling and pain Call the office if the area develops redness, swelling, drainage, increased pain, bleeding Call office if have not received the pathology results within one week The patient will follow-up in my office as needed. documented in this encounter Plan of Treatment Upcoming Encounters Date Type Department Care Team (Late st Contact Info) Description 08/03/2024 10:30 AM EDT Evaluation Outpatient Rehabilitation [address] [phone] Willy Oneill, NOVA 08/22/2024 9:45 AM EDT Office Visit Orthopedic Surgery [facility] [address] [phone] Byron Kohli, CHANTAL [address] [address] 08/31/2024 9:00 AM EDT Office Visit Bariatric Surgery [address] [phone] Miranda Rayo PA [address] [address] 09/18/2024 10:00 AM EDT Nutrition Bariatric Surgery - [address] [phone] Earnestine Lin, SAMEERA [address] [phone] 11/29/2024 8:30 AM EDT Office Visit [facility] [place] [facility] [place] [address] [place] [phone] Svitlana Garcia PA [address] [place] [address] 01/25/2025 1:00 PM EST Office Visit Pulmonolgy - [address] [phone] Daylin Moore MD [address] [address] documented as of this encounter Procedures Procedure Name Priority Date/Time Associated Diagnosis Comments TISSUE EXAM Routine 07/19/2024 8:47 AM EDT Multiple lipomas documented in this encounter Results * Tissue Exam (07/19/2024 8:47 AM EDT) Final Diagnosis A. Soft tissue, left chest, excision: - Angiolipoma. B. Soft tissue, left arm, excision: - Angiolipoma. - An area containing multinucleated giant cells and pigment laden macrophages is noted, suggesting a response to prior trauma or manipulation. 07/21/2024 12:27 PM EDT [facility] Clinical Information Multiple lipomas D17.9 07/21/2024 12:27 PM EDT [facility] Gross Description A. Chest, Left, Lipoma: Labeled chest L . Received in formalin is a 1.7 x 1.3 x 1.1 cm slightly dusky yellow to quintanilla-brown portion of adipose tissue. The cut surfaces are quintanilla-yellow to red-brown. [employer] sections are submitted in one cassette, two pieces. B. Arm, Left, Lipoma: Labeled arm L . Received in formalin is a 1.5 x 1.3 x 0.6 cm disrupted yellow-quintanilla slightly firm fibrofatty tissue fragment. The cut surfaces are quintanilla-yellow to red-brown and firm. The specimen is bisected and entirely submitted in one cassette, two pieces. VISHAL 07/21/2024 12:27 PM T [facility] Disclaimer Unless otherwise specified, all tissue is 10% NB formalin fixed and paraffin embedded. 07/21/2024 12:27 PM T [facility] Tissue Structure of left upper limb / Unknown Non-blood Collection / Unknown 07/19/2024 8:47 AM EDT 07/19/2024 8:59 AM EDT Tissue specimen (specimen) Structure of left upper limb / Unknown 07/19/2024 8:47 AM EDT 07/19/2024 8:59 AM EDT us Cleveland Schreiber DO LAB PATHOLOGY ORDERABLES Final Result [facility] [address] [place] [address], documented in this encounter Visit Diagnoses Diagnosis Multiple lipomas- Primary documented in this encounter Additional Health Concerns Assessment Noted Time PHQ-9 Depression Total Score: 15 025 11:46 AM EST documented as of this encounter Care Teams Surface Boss Relationship Specialty Start Date End Date Saji Cage MD [address] [place] [address] PCP - General 04/01/23 documented as of this encounter
--- OUTSIDE RECORDS SUMMARY | 2024-07-24 10:45 | XMS_ITS | Encounter Summary ---
Author Organization [facility] Address [address] [place] [address] Care Team Providers Care Infant Teacher Name Role Phone Saji Cage MD Primary Care Provider [phone] Encounter Details Date Type Department Care Team (Late st Contact Info) Description 01/06/2024 1:30 PM EDT Hospital Encounter TH HISTORIC ENCOUNTERS EASTERN CONVERSION ONLY Alberto Lynn MD [address] [address] Social History Tobacco Use Types Packs/Day Years [...] for your loved ones. For example, child development specialist or elderly care for an older adult? [...] 08/03/2024 10:30 AM EDT Evaluation Outpatient Rehabilitation [address] [phone] Willy Oneill PT 08/22/2024 9:45 AM EDT Office Visit Orthopedic Surgery - [address] [phone] Byron Kohli, CHANTAL 175 [facility] [address] [place] [address] 08/31/2024 9:00 AM EDT Office Visit Bariatric Surgery - [place] 175 [facility] [address] [place] [phone] Miranda Rayo PA [address] [address] 09/18/2024 10:00 AM EDT Nutrition Bariatric Surgery - [address] [phone] [phone] 11/29/2024 8:30 AM EDT Office Visit Adult Medicine [address] [phone] Svitlana Garcia PA [address] [place] [address] 01/25/2025 1:00 PM EST Office Visit Pulmonolgy - [address] [phone] Daylin Moore MD [address] [address] documented as of this encounter Visit Diagnoses Not on filedocumented in this encounter Care Teams Infant Teacher Relationship Specialty Start Date End Date Saji Cage MD [address] [place] [phone] PCP - General 04/01/23 documented as of this encounter
--- OUTSIDE RECORDS SUMMARY | 2024-07-24 10:45 | XMS_ITS | Clinical Summary ---
Author Organization 175 [facility] Address [address] [place] [address] Phone Care Team Providers Care Fulfillment Associate Name Role Phone Saji Cage MD Primary Care Provider Allergies No known active allergies Medications nicotine (NICODERM CQ) 14 mg/[address] 1 patch on the skin. 024 Active triamcinolone (KENALOG) 0.1 % cream Apply topically 2 (two) times a day. Apply to affected area 1-2 times daily as needed for 2 weeks FOR RASH LEFT FOREARM 30 g 024 Active albuterol HFA (Proventil HFA) 90 mcg/actuation inhalerIndication s:Obstructive lung disease (CMS/HCC V24, CMS/HCC V28) Inhale 2 puffs by mouth every 4 (four) hours if needed for wheezing or shortness of breath. 6.7 g 1 025 2025 Active diclofenac (VOLTAREN) 75 mg EC tablet TAKE 1 TABLET BY MOUTH TWICE A DAY NEEDED FOR PAIN DO NOT CRUSH, CHEW, OR SPLIT 60 tablet 1 025 Active diclofenac (VOLTAREN) 1 % topical gel APPLY 2 G TOPICALLY 2 (TWO) TIMES A DAY IF NEEDED (PAIN). 100 g 2 025 2024 Active tirzepatide, weight loss, (Zepbound) 2.5 mg/0.5 mL injectionIndicati ons:Class 3 severe obesity due to excess calories with body mass index (BMI) of 50.0 to 59.9 in adult, unspecified whether serious comorbidity present ([facility] V24, [facility] V28),EULALIO (obstructive sleep apnea) Inject 0.5 mL (2.5 mg total) under the skin every 7 (seven) days. 6 mL 1 Active ondansetron ODT (ZOFRAN-ODT) 8 mg disintegrating tablet Dissolve 1 tablet (8 mg total) on top of the tongue every 8 (eight) hours if needed for nausea or vomiting. 90 tablet 1 Active fluticasone-umecl idinium-vilantero l (Trelegy Ellipta) 100-62.5-25 mcg inhaler Inhale 1 puff (100 mcg total) by mouth 1 (one) time each day. Rinse mouth with water after use to reduce aftertaste and incidence of candidiasis. Do not swallow. 1 each 2025 Active colestipoL (COLESTID) 1 gram tablet TAKE 1 TABLET BY MOUTH 2 TIMES DAILY FOR 90 DAYS. 180 tablet Active umeclidinium-tana nteroL (Anoro Ellipta) 62.5-25 mcg/actuation inhalerIndication s:Chronic obstructive pulmonary disease, unspecified COPD type ([facility] V24, [facility] V28) Inhale 1 puff by mouth 1 (one) time each day. 3 each 2025 Active albuterol HFA (PROAIR HFA ; PROVENTIL HFA ; VENTOLIN HFA) 90 mcg/actuation inhalerIndication s:Chronic obstructive pulmonary disease, unspecified COPD type ([facility] V24, [facility] V28) Inhale 2 puffs by mouth every 6 (six) hours if needed for wheezing or shortness of breath. 3 each 025 2025 Active colestipoL (COLESTID) 1 gram tablet TAKE 1 TABLET BY MOUTH 2 TIMES DAILY FOR 90 DAYS. 180 tablet 2024 Discontinued psyllium (METAMUCIL) 0.52 gram capsule Take 1 capsule (520 mg total) by mouth 1 (one) time each day. 30 capsule 025 2024 Discontinued(T herapy completed) Active Problems Problem Noted Date Diagnosed Date Diverticula of colon 06/16/2024 Fatty liver 06/16/2024 Gastroesophageal reflux disease 06/16/2024 Chronic gastritis without bleeding 06/16/2024 Class 3 severe obesity witho ut serious comorbidity with body mass index (BMI) of 45.0 to 49.9 in adult ([facility] V24, [facility] V28) 12/20/2023 Tear of medial meniscus of right [...] Encounters Date Type Department Care Team Description 07/19/2024 9:30 AM EDT Office Visit Orthopedic Surgery - [place] 160 175 [facility] [address] [place] [address] Nathalia Ramires PA Primary osteoarthritis of both knees (Primary Dx); Chronic pain of both knees; Class 3 severe obesity without serious comorbidity with body mass index (BMI) of 45.0 to 49.9 in adult ([facility] V24, [facility] V28); History of medial meniscus repair of right knee 07/19/2024 8:30 AM EDT Procedure visit General Surgery [facility] 175 [facility] [address] [place] [address] Cleveland Schreiber, DO Multiple lipomas (Primary Dx) 07/17/2024 9:30 AM EDT Nutrition Bariatric Surgery - [place] 175 [facility] [address] [place] [address] Class 3 severe obesity without serious comorbidity with body mass index (BMI) of 45.0 to 49.9 in adult, unspecified obesity type ([facility] V24, CMS/[facility] V28) (Primary Dx) 07/13/2024 1:30 PM EDT Consult Pulmonolgy - [place] 175 [facility] [address] [place] [address] Daylin Moore MD Marijuana smoker (Primary Dx); Cigarette smoker motivated to quit; Chronic obstructive pulmonary disease, unspecified COPD type (CMS/HCC V24, CMS/HCC V28) 07/13/2024 Telephone Adult Medicine [address] [phone] Saji Cage MD prior auth 06/16/2024 2:29 PM EDT - 06/16/2024 11:59 PM EDT Hospital Encounter XRAY [address] [phone] SOB (shortness of breath) Discharge Disposition: Home or Self Care 06/16/2024 1:30 PM EDT Office Visit Adult [address] [phone] Saji Cage MD Diverticula of colon (Primary Dx); Anxiety and depression; Gastroesophageal reflux disease, unspecified whether esophagitis present; Chronic gastritis without bleeding, unspecified gastritis type; Nausea and vomiting, unspecified vomiting type; Fatty liver; Chronic knee pain, unspecified laterality; Cigarette smoker motivated to quit; Chronic obstructive pulmonary disease, unspecified COPD type (CMS/HCC V24, CMS/HCC V28); SOB (shortness of breath) 06/15/2024 8:30 AM EDT Nutrition Bariatric Surgery - [place] 175 [facility] [address] [place] [address] Class 3 severe obesity with serious comorbidity and body mass index (BMI) of 45.0 to 49.9 in adult, unspecified obesity type (CMS/HCC V24, CMS/HCC V28) (Primary Dx) 06/08/2024 3:13 PM EDT Anesthesia Event [facility] [address] [place] [address] Willy Barnett DO Saliga, Jesse L, MD 06/08/2024 1:56 PM EDT - 06/08/2024 11:59 PM EDT Hospital Encounter [facility] [address] [place] [address] Neyda Blair MD Steele, Matthew G, CRNA Colon cancer screening; GERD (gastroesophageal reflux disease) Discharge Disposition: Home or Self Care 05/30/2024 11:30 AM EDT Office Visit Bariatric Surgery - [address] [phone] Miranda Rayo PA Class 3 severe obesity due to excess calories with serious comorbidity and body mass index (BMI) of 50.0 to 59.9 in adult (CMS/HCC V24, CMS/HCC V28) (Primary Dx); EULALIO (obstructive sleep apnea) 05/18/2024 Telephone Adult Medicine [address] [phone] Saji Cage MD Forms/questionnaires (RMV) 05/17/2024 Telephone Adult Medicine [address] [phone] Natalia De La Vega [place] Forms/questionnaires (Medical summary/Massability) 05/16/2024 Telephone Adult [address] [phone] Saji Cage MD Prior Authorization (tirzepatide, weight loss, (Zepbound) 2.5 mg/0.5 mL injection) 05/04/2024 Telephone Bariatric Surgery [address] [phone] Miranda Rayo PA PA (Prior auth) 05/02/2024 9:00 AM EST Consult Bariatric Surgery - [address] [phone] Class 3 severe obesity with serious comorbidity and body mass index (BMI) of 50.0 to 59.9 in adult, unspecified obesity type (CMS/HCC V24, CMS/[facility] V28) (Primary Dx) 05/01/2024 2:45 PM EST Consult Orthopedic Surgery - [address] [address] Byron Kohli, CHANTAL Equinus contracture of right ankle (Primary Dx); Chronic heel pain, right; Pes planus of both feet; Plantar fasciitis from Last 3 Months Immunizations Name Administration Dates Next Due Pneumococcal conjugate 21 va lent (CAPVAXIVE, PCV 21) 19yo and older 07/17/2024 Surgical History Surgery Date Site/Laterality Comments KNEE SURGERY Right PROCEDURE: HISTORICAL KNEE SURGERY TONSILLECTOMY PROCEDURE: HISTORICAL TONSILLECTOMY CHOLECYSTECTOMY PROCEDURE: HISTORICAL CHOLECYSTECTOMY SKIN SURGERY N/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 For example, children's librarian or elderly care for an older adult? [...] Pulse 64 07/19/2024 8:22 AM EDT Temperature 36.2 ??C (97.2 ??F) 07/13/2024 1:39 PM ED T Respiratory Rate 18 06/08/2024 4:02 PM EDT Oxygen Saturation 97% 07/13/2024 1:39 PM EDT Inhaled Oxygen Concentration - - Weight 140 kg (308 lb) 07/19/2024 8:22 AM EDT Height 167.6 cm (5' 5.98 ) 07/19/2024 8:22 AM ED T Body Mass Index 49.74 07/19/2024 8:22 AM EDT Plan of Treatment Upcoming Encounters Date Type Department Care Team (Late st Contact Info) Description 08/03/2024 10:30 AM EDT Evaluation Outpatient Rehabilitation - [address] [phone] Willy Oneill, NOVA 08/22/2024 9:45 AM EDT Office Visit Orthopedic Surgery [facility] [address] [phone] Byron Kohli, DPM [address] [phone] 08/31/2024 9:00 AM EDT Office Visit Bariatric Surgery [facility] [address] [phone] Miranda Rayo PA [address] [phone] 09/18/2024 10:00 AM EDT Nutrition Bariatric Surgery [facility] [address] [phone] Earnestine Lin, SAMEERA [address] [phone] 11/29/2024 8:30 AM EDT Office Visit Adult Medicine [place] - [address] [phone] Svitlana Garcia PA [address] [place], [place] 01/25/2025 1:00 PM EST [facility] [place] 175 [facility] [address] [place] [address] Daylin Moore MD [address] [place] [phone] Health Maintenance Due Date Last Done Comments Zoster Vaccines (1 of 2) 2022 HIV Screening 04/02/2023 Hypertension/CHF/CAD Annual BMP Blood Test 10/04/2024 10/05/2023, 10/05/2023 Influenza Vaccine (Season Ended) 2024 01/19/2022, 01/10/2021, 01/30/2019, Additional history exists Depression Screening 04/19/2025 04/19/2024, 10/05/19 24 Social Influencers of Health Screening 04/19/2025 04/19/2024 Cholesterol Screening (Lipid Panel) 03/03/2029 03/03/2024, 10/06/2023, 10/06/2023, Additional history exists DTaP,Tdap,and Td Vaccines (3 - Td or Tdap) 05/13/2032 05/13/2022, 05/06/2012 Colorectal Cancer Screening: Colonoscopy 06/08/2034 06/08/2024 Hepatitis A Vaccines Completed 09/03/2010, 03/13/2010, 02/11/2010 Hepatitis B Vaccines Completed 09/03/2010, 03/13/2010, 02/11/2010 Hepatitis C Screening Completed 11/18/2023 COVID-19 Vaccine Completed 07/17/2024, , 09/07/2020, Additional history exists Pneumococcal Vaccine: 50+ Years Completed 07/17/2024, 09/25/2020 Pneumococcal Vaccine: Pediatrics (0 to 5 Years) and At-Risk Patients (6 to 64 Years) Completed 07/17/2024, 09/25/2020 HIB Vaccines Aged Out No longer eligi [...] age to complete this topic Meningococcal B Vaccine Aged Out No l onger eligible based on patient's age to complete this topic RSV Immunization Patients Under 20 months Aged Out No longer eligible based on patient's age to complete this topic Varicella Vaccines Aged Out No longer eligible based on patient's age to complete this topic Procedures Procedure Name Priority Date/Time Associated Diagnosis Comments TISSUE EXAM Routine 07/19/2024 8:47 AM EDT Multiple lipomas XR CHEST 2 VIEWS Routine 06/16/2024 2:36 PM EDT SOB (shortness of breath) COLONOSCOPY Routine 06/08/2024 3:42 PM EDT Colon cancer screening GERD (gastroesophageal reflux disease) EGD Routine 06/08/2024 3:42 PM EDT Colon cancer screening GERD (gastroesophageal reflux disease) TISSUE EXAM Routine 06/08/2024 3:38 PM EDT Colon cancer screening GERD (gastroesophageal reflux disease) INJECTION TENDON OR LIGAMENT Routine 05/01/2024 2:45 PM EST Plantar fasciitis LIPID PANEL WITH REFLEX TO DIRECT LDL Routine 03/03/2024 9:13 AM EST Hypercholesterolemi a HEPATITIS C SCREENING Routine 11/18/2023 DEPRESSION SCREENING Routine 10/05/2023 ANNUAL BMP BLOOD TEST Routine 10/05/2023 from Last 3 Months or Most Recently Relevant to Health Maintenance Results * Tissue Exam (07/19/2024 8:47 AM EDT) Only the most recent of2 resultswithin the time period is included. Final Diagnosis A. Soft tissue, left chest, excision: - Angiolipoma. B. Soft tissue, left arm, excision: - Angiolipoma. - An area containing multinucleated giant cells and pigment laden macrophages is noted, suggesting a response to prior trauma or manipulation. 07/21/2024 12:27 PM EDT [facility] Clinical Information Multiple lipomas D17.9 07/21/2024 12:27 PM EDT [facility] Gross Description A. Chest, Left, Lipoma: Labeled chest L . Received in formalin is a 1.7 x 1.3 x 1.1 cm slightly dusky yellow to quintanilla-brown portion of adipose tissue. The cut surfaces are quintanilla-yellow to red-brown. Mineral Economist sections are submitted in one cassette, two pieces. B. Arm, Left, Lipoma: Labeled arm L . Received in formalin is a 1.5 x 1.3 x 0.6 cm disrupted yellow-quintanilla slightly firm fibrofatty tissue fragment. The cut surfaces are quintanilla-yellow to red-brown and firm. The specimen is bisected and entirely submitted in one cassette, two pieces. VISHAL 07/21/2024 12:27 PM EDT [facility] Disclaimer Unless otherwise specified, all tissue is 10% NB formalin fixed and paraffin embedded. 07/21/2024 12:27 PM EDT [facility] Tissue Structure of left upper limb / Unknown Non-blood Collection / Unknown 07/19/2024 8:47 AM EDT 07/19/2024 8:59 AM EDT Tissue specimen (specimen) Structure of left upper limb / Unknown 07/19/2024 8:47 AM EDT 07/19/2024 8:59 AM EDT us Cleveland Schreiber DO LAB PATHOLOGY ORDERABLES Final Result [facility] [address] [place] [address], * XR Chest 2 Views (06/16/2024 2:36 PM EDT) Anatomical Region Laterality Modality Body Radiographic Cara ging 06/16/2024 2:42 PM EDT Impressions 06/16/2024 2:43 PM EDT No acute cardiopulmonary abnormality. -------- FINAL REPORT -------- Dictated By: Igor Castillo Dictated Date: 06/16/2024 14:42 ET Assigned Physician: Igor Castillo Reviewed and Electronically Signed By: Igor Castillo Signed Date: 06/16/2024 14:43 ET Workstation ID: [id number] Transcribed By: Self Edit Transcribed Date: 06/16/2024 14:42 ET Narrative 06/16/2024 2:43 PM EDT XR CHEST 2 VIEWS Reason: SOB Comparison: None FINDINGS: Lungs: No focal consolidation. ??No evidence of pulmonary edema. Pleura: No pleural effusion or pneumothorax. Heart/Mediastinum: Cardiomediastinal silhouette is within normal limits. Bones : No acute findings. Procedure Note Igor Castillo MD - 06/16/2024 XR CHEST 2 VIEWS Reason: SOB Comparison: None FINDINGS: Lungs: No focal consolidation. No evidence of pulmonary edema. Pleura: No pleural effusion or pneumothorax. Heart/Mediastinum: Cardiomediastinal silhouette is within normal limits. Bones : No acute findings. IMPRESSION: No acute cardiopulmonary abnormality. -------- FINAL REPORT -------- Dictated By: Igor Castillo Dictated Date: 06/16/2024 14:42 ET Assigned Physician: Igor Castillo Reviewed and Electronically Signed By: Igor Castillo Signed Date: 06/16/2024 14:43 ET Workstation ID: [id number] Transcribed By: Self Edit Transcribed Date: 06/16/2024 14:42 ET Saji Cage MD IMG XR PROCEDURES Final Res ult * COLONOSCOPY Anesthesia - MAC; [facility] ENDOSCOPY (06/08/2024 3:42 PM EDT) Anatomical Region Laterality Modality Endoscopy 06/08/2024 3:17 PM EDT Impressions 06/08/2024 3:46 PM EDT - Diverticulosis in the sigmoid colon. ? - Internal hemorrhoids. ? - The examination was otherwise normal. ? - No specimens collected. Recommendation: ?- Discharge patient to home. ? - Repeat colonoscopy in 10 years for screening ? purposes. Narrative 06/08/2024 3:46 PM EDT [facility] GI Patient Name: Migel Hansen Procedure Date: 06/08/2024 3:17 PM Date of : 1970 Age: 54 Gender: Male Note Status: Finalized Attending MD: Neyda Blair MD, Procedure Date No Time: 06/08/2024 Procedure: ? Colonoscopy Indications: ? Screening for colorectal malignant neoplasm Providers: ? Neyda Blair MD Referring MD: ?Neyda Blair MD Medicines: ? Monitored Anesthesia Care Complications: ? No immediate complications. Estimated Blood Loss: ? Estimated blood loss: none. Procedure: ? Pre-Anesthesia Assessment: ? - Prior to the procedure, a History and Physical was ? performed, and patient medications and allergies were ? reviewed. The patient is competent. The risks and ? benefits of the procedure and the sedation options and ? risks were discussed with the patient. All questions ? were answered and informed consent was obtained. ? Patient identification and proposed procedure were ? verified by the physician, the nurse, the biological engineer ? and the medical technicians in the pre-procedure area in the ? endoscopy suite. Mental Status Examination: alert and ? oriented. Airway Examination: normal oropharyngeal ? airway and neck mobility. Respiratory Examination: ? clear to auscultation. CV Examination: normal. ? Prophylactic Antibiotics: The patient does not require ? prophylactic antibiotics. Prior Anticoagulants: The ? patient has taken no anticoagulant or antiplatelet ? agents. ASA Grade Assessment: III - A patient with ? severe systemic disease. After reviewing the risks and ? benefits, the patient was deemed in satisfactory ? condition to undergo the procedure. The anesthesia ? plan was to use monitored anesthesia care (MAC). ? Immediately prior to administration of medications, ? the patient was re-assessed for adequacy to receive ? sedatives. The heart rate, respiratory rate, oxygen ? saturations, blood pressure, adequacy of pulmonary ? ventilation, and response to care were monitored ? throughout the procedure. The physical status of the ? patient was re-assessed after the procedure. ? After I obtained informed consent, the scope was ? passed under direct vision. Throughout the procedure, ? the patient's blood pressure, pulse, and oxygen ? saturations were monitored continuously.The ? Colonoscope was introduced through the anus and ? advanced to the cecum, identified by appendiceal ? orifice and ileocecal valve. The colonoscopy was ? performed without difficulty. The patient tolerated ? the procedure well. The quality of the bowel ? preparation was good. Findings: ?The perianal and digital rectal examinations were ? normal. ? Scattered small-mouthed diverticula were found in the ? sigmoid colon. ? Internal hemorrhoids were found during retroflexion. ? The hemorrhoids were Grade I (internal hemorrhoids ? that do not prolapse). ? The exam was otherwise without abnormality. Procedure Code(s): ? --- Professional --- ? G0121, Colorectal cancer screening; colonoscopy on ? individual not meeting criteria for high risk Diagnosis Code(s): ? --- Professional --- ? Z12.11, Encounter for screening for malignant neoplasm ? of colon CPT copyright 202 [employer]. All rights reserved. The codes documented in this report are preliminary and upon icd 9 coder review may be revised to meet current compliance requirements. Neyda Blair MD 06/08/2024 3:46:33 PM This report has been signed electronically.Neyda Blair MD Number of Addenda: 0 Note Initiated On: 06/08/2024 3:17 PM Scope Withdrawal Time: 0 hours 6 minutes 57 seconds Scope In: 3:23:41 PM Scope Out: 3:33:54 PM ? Endoscopy Department at [facility] - [address] [place] [address], ? [place] [address] Procedure Note Neyda Blair MD - 06/08/2024 [facility] GI Patient Name: Migel Hansen Procedure Date: 06/08/2024 3:17 PM Date of : 1970 Age: 54 Gender: Male Note Status: Finalized Attending MD: Neyda Blair MD, Procedure Date No Time: 06/08/2024 Procedure: Colonoscopy Indications: Screening for colorectal malignant neoplasm Providers: Neyda Blair MD Referring MD: Neyda Blair MD Medicines: Monitored Anesthesia Care Complications: No immediate complications. Estimated Blood Loss: Estimated blood loss: none. Procedure: Pre-Anesthesia Assessment: - Prior to the procedure, a History and Physicalwas performed, and patient medications and allergieswere reviewed. The patient is competent. The risks and benefits of the procedure and the sedation optionsand risks were discussed with the patient. Allquestions were answered and informed consent was obtained. Patient identification and proposed procedure were verified by the physician, the nurse, theanesthetist and the medical technicians in the pre-procedure area in the endoscopy suite. Mental Status Examination: alertand oriented. Airway Examination: normal oropharyngeal airway and neck mobility. Respiratory Examination: clear to auscultation. CV Examination: normal. Prophylactic Antibiotics: The patient does notrequire prophylactic antibiotics. Prior Anticoagulants: The patient has taken no anticoagulant or antiplatelet agents. ASA Grade Assessment: III - A patient with severe systemic disease. After reviewing the risksand benefits, the patient was deemed in satisfactory condition to undergo the procedure. The anesthesia plan was to use monitored anesthesia care (MAC). Immediately prior to administration of medications, the patient was re-assessed for adequacy to receive sedatives. The heart rate, respiratory rate, oxygen saturations, blood pressure, adequacy of pulmonary ventilation, and response to care were monitored throughout the procedure. The physical status ofthe patient was re-assessed after the procedure. After I obtained informed consent, the scope was passed under direct vision. Throughout theprocedure, the patient's blood pressure, pulse, and oxygen saturations were monitored continuously.The Colonoscope was introduced through the anus and advanced to the cecum, identified by appendiceal orifice and ileocecal valve. The colonoscopy was performed without difficulty. The patient tolerated the procedure well. The quality of the bowel preparation was good. Findings: The perianal and digital rectal examinations were normal. Scattered small-mouthed diverticula were found inthe sigmoid colon. Internal hemorrhoids were found duringretroflexion. The hemorrhoids were Grade I (internal hemorrhoids that do not prolapse). The exam was otherwise without abnormality. Procedure Code(s): --- Professional --- G0121, Colorectal cancer screening; colonoscopy on individual not meeting criteria for high risk Diagnosis Code(s): --- Professional --- Z12.11, Encounter for screening for malignantneoplasm of colon CPT copyright 2020 [employer]. All rights reserved. The codes documented in this report are preliminary and upon icd 9 coder reviewmay be revised to meet current compliance requirements. Neyda Blair MD 06/08/2024 3:46:33 PM This report has been signed electronically.Neyda Blair MD Number of Addenda: 0 Note Initiated On: 06/08/2024 3:17 PM Scope Withdrawal Time: 0 hours 6 minutes 57 seconds Scope In: 3:23:41 PM Scope Out: 3:33:54 PM Endoscopy Department at [facility] - [address] [place] [phone] IMPRESSION: - Diverticulosis in the sigmoid colon. - Internal hemorrhoids. - The examination was otherwise normal. - No specimens collected. Recommendation: - Discharge patient to home. - Repeat colonoscopy in 10 years for screening purposes. us Neyda Blair MD GI~PROCEDURE ORDERABLES Fin al Result * EGD Anesthesia - MAC; [facility] ENDOSCOPY (06/08/2024 3:42 PM EDT) Anatomical Region Laterality Modality Endoscopy 06/08/2024 3:17 PM EDT Impressions 06/08/2024 3:44 PM EDT - Normal examined duodenum. ? - Gastritis. Biopsied. ? - Normal esophagus. Recommendation: ?- Discharge patient to home. ? - Follow an antireflux regimen. ? - Continue present medications. ? - Await pathology results. Narrative 06/08/2024 3:44 PM EDT [facility] GI Patient Name: Migel Hansen Procedure Date: 06/08/2024 3:17 PM Date of : 1970 Age: 54 Gender: Male Note Status: Finalized Attending MD: Neyda Blair MD, Procedure Date No Time: 06/08/2024 Procedure: ? Upper GI endoscopy Indications: ? Esophageal reflux symptoms that persist despite ? appropriate therapy, Heartburn Providers: ? Neyda Blair MD Referring MD: ?Neyda Blair MD Medicines: ? Monitored Anesthesia Care Complications: ? No immediate complications. Estimated blood loss: ? Minimal. Estimated Blood Loss: ? Estimated blood loss: none. Procedure: ? Pre-Anesthesia Assessment: ? - Prior to the procedure, a History and Physical was ? performed, and patient medications and allergies were ? reviewed. The patient is competent. The risks and ? benefits of the procedure and the sedation options and ? risks were discussed with the patient. All questions ? were answered and informed consent was obtained. ? Patient identification and proposed procedure were ? verified by the physician, the nurse, the biological engineer ? and the medical technicians in the pre-procedure area in the ? endoscopy suite. Mental Status Examination: alert and ? oriented. Airway Examination: normal oropharyngeal ? airway and neck mobility. Respiratory Examination: ? clear to auscultation. CV Examination: normal. ? Prophylactic Antibiotics: The patient does not require ? prophylactic antibiotics. Prior Anticoagulants: The ? patient has taken no anticoagulant or antiplatelet ? agents. ASA Grade Assessment: III - A patient with ? severe systemic disease. After reviewing the risks and ? benefits, the patient was deemed in satisfactory ? condition to undergo the procedure. The anesthesia ? plan was to use monitored anesthesia care (MAC). ? Immediately prior to administration of medications, ? the patient was re-assessed for adequacy to receive ? sedatives. The heart rate, respiratory rate, oxygen ? saturations, blood pressure, adequacy of pulmonary ? ventilation, and response to care were monitored ? throughout the procedure. The physical status of the ? patient was re-assessed after the procedure. ? After obtaining informed consent, the endoscope was ? passed under direct vision. Throughout the procedure, ? the patient's blood pressure, pulse, and oxygen ? saturations were monitored continuously.The Olympus ? Gastroscope was introduced through the mouth, and ? advanced to the second part of duodenum. The upper GI ? endoscopy was accomplished without difficulty. The ? patient tolerated the procedure well. Findings: ?The examined duodenum was normal. ? Localized minimal inflammation characterized by ? congestion (edema) and erythema was found in the ? gastric antrum. Biopsies were taken with a cold ? forceps for histology. Estimated blood loss was ? minimal. ? The cardia and gastric fundus were normal on ? retroflexion. ? The esophagus was normal. Procedure Code(s): ? --- Professional --- ? 14398, Esophagogastroduodenoscopy, flexible, ? transoral; with biopsy, single or multiple Diagnosis Code(s): ? --- Professional --- ? K29.70, Gastritis, unspecified, without bleeding CPT copyright 2021 [employer]. All rights reserved. The codes documented in this report are preliminary and upon icd 9 coder review may be revised to meet current compliance requirements. Neyda Blair MD 06/08/2024 3:44:45 PM This report has been signed electronically.Neyda Blair MD Number of Addenda: 0 Note Initiated On: 06/08/2024 3:17 PM Scope In: Scope Out: ? Endoscopy Department at [facility] - [address] [place] [address], ? [place] [id number] Procedure Note Neyda Blair MD - 06/08/2024 [facility] GI Patient Name: Migel Hansen Procedure Date: 06/08/2024 3:17 PM Date of : 1970 Age: 54 Gender: Male Note Status: Finalized Attending MD: Neyda Blair MD, Procedure Date No Time: 06/08/2024 Procedure: Upper GI endoscopy Indications: Esophageal reflux symptoms that persist despite appropriate therapy, Heartburn Providers: Neyda Blair MD Referring MD: Neyda Blair MD Medicines: Monitored Anesthesia Care Complications: No immediate complications. Estimated blood loss: Minimal. Estimated Blood Loss: Estimated blood loss: none. Procedure: Pre-Anesthesia Assessment: - Prior to the procedure, a History and Physicalwas performed, and patient medications and allergieswere reviewed. The patient is competent. The risks and benefits of the procedure and the sedation optionsand risks were discussed with the patient. Allquestions were answered and informed consent was obtained. Patient identification and proposed procedure were verified by the physician, the nurse, theanesthetist and the medical technicians in the pre-procedure area in the endoscopy suite. Mental Status Examination: alertand oriented. Airway Examination: normal oropharyngeal airway and neck mobility. Respiratory Examination: clear to auscultation. CV Examination: normal. Prophylactic Antibiotics: The patient does notrequire prophylactic antibiotics. Prior Anticoagulants: The patient has taken no anticoagulant or antiplatelet agents. ASA Grade Assessment: III - A patient with severe systemic disease. After reviewing the risksand benefits, the patient was deemed in satisfactory condition to undergo the procedure. The anesthesia plan was to use monitored anesthesia care (MAC). Immediately prior to administration of medications, the patient was re-assessed for adequacy to receive sedatives. The heart rate, respiratory rate, oxygen saturations, blood pressure, adequacy of pulmonary ventilation, and response to care were monitored throughout the procedure. The physical status ofthe patient was re-assessed after the procedure. After obtaining informed consent, the endoscope was passed under direct vision. Throughout theprocedure, the patient's blood pressure, pulse, and oxygen saturations were monitored continuously.The Olympus Gastroscope was introduced through the mouth, and advanced to the second part of duodenum. The upperGI endoscopy was accomplished without difficulty. The patient tolerated the procedure well. Findings: The examined duodenum was normal. Localized minimal inflammation characterized by congestion (edema) and erythema was found in the gastric antrum. Biopsies were taken with a cold forceps for histology. Estimated blood loss was minimal. The cardia and gastric fundus were normal on retroflexion. The esophagus was normal. Procedure Code(s): --- Professional --- 14113, Esophagogastroduodenoscopy, flexible, transoral; with biopsy, single or multiple Diagnosis Code(s): --- Professional --- K29.70, Gastritis, unspecified, without bleeding CPT copyright 2020 [employer]. All rights reserved. The codes documented in this report are preliminary and upon icd 9 coder reviewmay be revised to meet current compliance requirements. Neyda Blair MD 06/08/2024 3:44:45 PM This report has been signed electronically.Neyda Blair MD Number of Addenda: 0 Note Initiated On: 06/08/2024 3:17 PM Scope In: Scope Out: Endoscopy Department at [facility] - [address] [place] [id number] IMPRESSION: - Normal examined duodenum. - Gastritis. Biopsied. - Normal esophagus. Recommendation: - Discharge patient to home. - Follow an antireflux regimen. - Continue present medications. - Await pathology results. us Neyda Blair MD GI~PROCEDURE ORDERABLES Fin al Result * Injection tendon or ligament (05/01/2024 2:45 PM EST) Narrative Byron Kohli DPM - 05/01/2024 2:45 PM EST Byron Kohli DPM ? 05/01/2024 ??5:37 PM Injection tendon or ligament Indications: pain Details: 25 G needle Medications: 0.5 mL lidocaine (PF) 1 %; 40 mg triamcinolone acetonide 40 mg/mL Informed Consent: ??Laterality: ??Right Byron Kohli DPM IN CLINIC/BEDSIDE ORDERABLE S Final Result * Lipid panel with reflex to direct LDL (03/03/2024 9:13 AM EST) Cholesterol 149 0 - 200 mg/dL LAB CHEMISTRY METHOD 03/03/2024 10:42 AM EST [facility] Triglycerides 86 0 - 150 mg/dL LAB CHEMISTRY METHOD 03/03/2024 10:42 AM EST [facility] HDL 40 >=40 mg/dL LAB CHEMISTRY METHOD 03/03/2024 10:42 AM EST [facility] LDL Calculated 92 0 - 100 mg/dL LAB CHEMISTRY METHOD 03/03/2024 10:42 AM EST [facility] VLDL Cholesterol Brad 17.2 mg/dL LAB CHEMISTRY METHOD 03/03/2024 10:42 AM EST [facility] Non HDL Chol. (LDL+VLDL) 109 <145 mg/dL LAB CHEMISTRY METHOD 03/03/2024 10:42 AM EST [facility] Chol/HDL Ratio 3.7 0.0 - 4.4 LAB CHEMISTRY METHOD 03/03/2024 10:42 AM EST [facility] Blood Venous blood specimen / Unknown Venipuncture / Unknown 03/03/2024 9:13 AM EST 03/03/2024 10:04 AM EST us Saji Cage MD LAB BLOOD ORDERABLES Final Result [facility]) [facility] [address] [place] [address], [place] [phone] * Hepatitis C Screening (11/18/2023) Hepatitis C Screening Abstracted Historical Provider HEALTH MAINTENANCE Final Result * Annual BMP Blood Test (10/05/2023) Annual BMP Blood Test Abstracted Historical Provider HEALTH MAINTENANCE Final Result * Depression Screening (10/05/2023) Depression Screening Abstracted Historical Provider HEALTH MAINTENANCE Final Result from Last 3 Months or Most Recently Relevant to Health Maintenance Insurance [facility] Care Teams Fulfillment Associate Relationship Specialty Start Date End Date Saji Cage MD [address] [place] [address] PCP - General 04/01/23
== END 2024-07-24 11:02 | disposition home or self-care (01) ==
PROVIDERS: PCP Internal Medicine; Visit Provider Physician Assistant Medical
DX: G47.33 Obstructive sleep apnea (adult) (pediatric) (principal); E66.01 Morbid (severe) obesity due to excess calories; Z68.43 Body mass index [BMI] 50.0-59.9, adult; R45.4 Irritability and anger
CPT/HCPCS: 99214

== ENCOUNTER → 2024-07-24 10:11 | Outpatient (BNVA) | payer OTHER, SELFPAY | PROVIDERS: PCP Internal Medicine; Visit Provider Physician Assistant Medical | DX: G47.33 Obstructive sleep apnea (adult) (pediatric) (principal); R45.4 Irritability and anger; E66.01 Morbid (severe) obesity due to excess calories; Z68.43 Body mass index [BMI] 50.0-59.9, adult | CPT/HCPCS: 99212 ==

== ENCOUNTER 2024-11-24 09:53 | Outpatient (AMB) | payer OTHER, SELFPAY ==
--- OUTSIDE RECORDS SUMMARY | 2024-01-06 13:30 | XMS_ITS | Encounter Summary ---
Author Organization [facility] Address [address] [place] [address] Care Team Providers Care Grain Receiver Name Role Phone Saji Cage MD Primary Care Provider [phone] Encounter Details Date Type Department Care Team (Late st Contact Info) Description 01/06/2024 1:30 PM EDT Hospital Encounter TH HISTORIC ENCOUNTERS EASTERN CONVERSION ONLY Alberto Lynn MD [address] [place] [phone] Social History Tobacco Use Types Packs/Day [...] care for your loved ones. For example, children teacher or elderly care for an older [...] 8:30 AM EDT Office Visit Adult Medicine [address] [phone] Svitlana Garcia PA [address] [place] [address] 12/18/2024 10:00 AM EDT Nutrition Bariatric Surgery [address] [phone] Earnestine Lin, RD 175 [facility] 120 [place] [phone] 01/17/2025 10:50 AM EST Office Visit [facility] - [address] [place] [phone] Lisha Fernández MD [address] [place] [address] Dr [address] [place] [phone] 01/25/2025 1:00 PM EST Office Visit Pulmonology - [place] 175 [facility] 200 [place] [phone] Daylin Moore MD 175 [facility] 200 [place] [address] 01/30/2025 1:00 PM EST Office Visit Orthopedic Surgery - [place] [address] [phone] Byron Kohli, CHANTAL [address] [address] 04/04/2025 9:00 AM EST Office Visit Bariatric Surgery - [place] 175 [facility] 120 [place] [phone] Miranda Rayo PA 230 [place] [phone] documented as of this encounter Visit Diagnoses Not on filedocumented in this encounter Care Teams Grain Receiver Relationship Specialty Start Date End Date Saji Cage MD [address] [place] [address] PCP - General 04/01/23 documented as of this encounter
--- NOTE | 2024-11-24 09:59 | A.OFFVIS_ITS ---
Vital Signs 11/24/24 10:01 Height 5 ft 5 in Weight 277 lb 6 oz BMI 46.2 BP 132/82 Blood Pressure Location Rt brachial Position Sitting Pulse 50 Pulse Source Pulse Oximeter Pulse Oximetry (%) 96 Oxygen Delivery Method Room Air Intake Visit Reasons: 4m follow up Intake Note: Patient presents follow up EULALIO medication. 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 EULALIO Compliance Report 08/2024- 11/2024 Total use 87/90days >=4hrs and 94% Avg use 7hr 6min Med Press 15cm, Med Leaks-37.6, and AHI-2.8 He washes his mask, rinses hoses, changes filters and fills reservoir with water. Ever has lost 70lbs bc he needs a bilateral TKR. He was diagnosed with COPD and fatty liver disease recently so he quit smoking about 3 weeks ago. Per his orthopedic surgeon his BMI has to decrease to < 40 prior to his TKR. He plays video games, cleans the house and does laundry to distract himself from smoking. 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 He goes to bed at 8:30pm to 10pm and wakes up at 3 am daily, feels exhausted most days. He has knee pain with ambulation uses a cane and a rolling walker at home, denies falls.He sees therapist weekly for anxiety which is better managed. His diet is poor, has GI issues with reflux, acid after eating a meal, flows into his throat and has constipation then diarrhea (IBD). His recent colonoscopy on the 08 of June was normal. He is now trying to control portion sizes, eating / cooking healthier meals and water fasting.He is now 277lbs. 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 [facility]LY [facility], [facility] Medical History Fatty liver COPD (chronic obstructive pulmonary disease) Surgical History History of tonsillectomy Family History Father Diabetes Mother Borderline blood pressure Brother ADHD Sister Arthritis Social History Household Members: Family and Children Housing: Apartment Alcohol intake: current Comment: Ocassionally Patient Tobacco Use Status: Former Tobacco user Years Smoked: 4 Physical Exam Vital Signs: Last Vital Signs Pulse 50 11/24/24 10:01 BP 132/82 11/24/24 10:01 Pulse Ox 96 11/24/24 10:01 Oxygen Delivery Method Room Air 11/24/24 10:01 BMI result Body Mass Index 46.2 Const General: cooperative and comfortable Nutritional Appearance: obese Orientation/consciousness: patient oriented x3 HEENT Face and sinus: Yes face symmetric Eyes Pupils: Equal, round and reactive pupils present Neck Neck: Yes full ROM Resp Effort & Inspection: normal respiratory effort and able to speak in complete sentences Neuro General: patient oriented x3 and moves all extremities Cranial nerves: Yes Facial sensation intact/muscles of mastication intact, Yes Equal, round and reactive pupils present, Yes Normal accommodation reflex present, Yes Normal facial strength present, Yes Midline tongue present, Yes Ability to bilaterally rotate head present and Yes Ability to bilaterally elevate shoulders present Gait exam (Neuro): Assistive device used Motor exam (neuro): 5/5 motor strength present throughout Psych Appearance: grossly normal Thought process: Normal thought process present Thought content: Normal thought content present Results Reviewed Results Reviewed: Jorgegtpratibha is 277lbs today. BMI is 46.2 EULALIO Compliance Report 08/2024- 11/2024 Total use 87/90days >=4hrs and 94% Avg use 7hr 6min Med Press 15cm, Med Leaks-37.6, and AHI-2.8 He washes his mask, rinses hoses, changes filters and fills reservoir with water. Assessment & Plan Assessment & Plan (1) EULALIO (obstructive sleep apnea): Comment: hx of severe degree of sleep apnea 71/hr and 75% O2 Code(s): G47.33 - Obstructive sleep apnea (adult) (pediatric) Category: Medical (2) Morbid obesity with BMI of 50.0-59.9, adult: Code(s): E66.01 - Morbid (severe) obesity due to excess calories; Z68.43 - Body mass index [BMI] 50.0-59.9, adult Category: Medical (3) Irritable mood: Code(s): R45.4 - Irritability and anger Category: Medical (4) Constipation: Code(s): K59.00 - Constipation, unspecified Category: Medical Qualifiers: Constipation type: slow transit constipation Qualified Code(s): K59.01 - Slow transit constipation (5) Sciatica of left side: Code(s): M54.32 - Sciatica, left side Category: Medical Plan EULALIO reviewed compliance with pt today, he feels sleep is improving. Obesity continue to meal prep and control portion sizes. F/U with weight mgmt if you want to continue with Bariatric surgery or if you want to get nutritional counseling. Sciatica and Knee pain voltaran topically, bengay, icy hot or tiger balm as needed. PT is available if you need to return. Irritable mood will increase Buproprion from 150mg PO daily to 300mg PO qam, insurance approval of Zepbound pending. f/u in 6 months will complete labs. Orders: Orders Complete Blood Count no Diff 11/24/24 G47.33 - Obstructive sleep apnea (adult) (pediatric), K59.00 - Constipation, unspecified, M54.32 - Sciatica, left side Ferritin 11/24/24 G47.33 - Obstructive sleep apnea (adult) (pediatric), K59.00 - Constipation, unspecified, M54.32 - Sciatica, left side Methylmalonic Acid 11/24/24 G47.33 - Obstructive sleep apnea (adult) (pediatric), G47.9 - Sleep disorder, unspecified, K59.00 - Constipation, unspec ified, M54.32 - Sciatica, left side, R53.83 - Other fatigue Vitamin B1 11/24/24 G47.33 - Obstructive sleep apnea (adult) (pediatric), K59.00 - Constipation, unspecified, M54.32 - Sciatica, left side Comprehensive Met. Panel 11/24/24 G47.33 - Obstructive sleep apnea (adult) (pediatric), K59.00 - Constipation, unspecified, M54.32 - Sciatica, left side Homocysteine 11/24/24 G47.33 - Obstructive sleep apnea (adult) (pediatric), G47.9 - Sleep disorder, unspecified, K59.00 - Constipation, unspecified, M54.32 - Sciatica, left side, R53.83 - Other fatigue Vitamin D 25-OH Total 11/24/24 G47.33 - Obstructive sleep apnea (adult) (pediatric), K59.00 - Constipation, unspecified, M54.32 - Sciatica, left side Vitamin B6 11/24/24 G47.33 - Obstructive sleep apnea (adult) (pediatric), K59.00 - Constipation, unspecified, M54.32 - Sciatica, left side Vitamin B12 and Folate 11/24/24 G47.33 - Obstructive sleep apnea (adult) (pediatric), K59.00 - Constipation, unspecified, M54.32 - Sciatica, left side TSH reflex Free T4 11/24/24 G47.33 - Obstructive sleep apnea (adult) (pediatric), K59.00 - Constipation, unspecified, M54.32 - Sciatica, left side Medications: New bisacodyl 10 mg (2 x 5 mg) PO ONCE 3 months 180 tabs 3RF constipation MDD 5mg K59.00 - Constipation, unspecified Coding Level of Care Code Est Pt Level 4 (40368) Diagnoses EULALIO (obstructive sleep apnea) G47.33 Morbid obesity with BMI of 50.0-59.9, adult E66.01; Z68.43 Irritable mood R45.4 Slow transit constipation K59.01 Constipation type: slow transit constipation Sciatica of left side M54.32
[2024-11-24 10:01] VITALS: BP 132/82; PULSE 50; O2SAT 96; BMI 46.2
--- OUTSIDE RECORDS SUMMARY | 2024-11-24 10:25 | XMS_ITS | Clinical Summary ---
Author Organization [address] [place] [address] Address [address] [place] [address] Phone Care Team Providers Care Director Of Special Education Name Role Phone Saji Cage MD Primary Care Provider Allergies No known active allergies Medications nicotine (NICODERM CQ) 14 mg/[address] 1 patch on the skin. 11/07/19 24 Active triamcinolone (KENALOG) 0.1 % cream Apply topically 2 (two) times a day. Apply to affected area 1-2 times daily as needed for 2 weeks FOR RASH LEFT FOREARM 30 g 02/23/20 24 Active albuterol HFA (Proventil HFA) 90 mcg/actuation inhalerIndication s:Obstructive lung disease (CMS/HCC V24, CMS/HCC V28) Inhale 2 puffs by mouth every 4 (four) hours if needed for wheezing or shortness of breath. 6.7 g 1 04/02/19 25 2025 Active diclofenac (VOLTAREN) 75 mg EC tablet TAKE 1 TABLET BY MOUTH TWICE A DAY NEEDED FOR PAIN DO NOT CRUSH, CHEW, OR SPLIT 60 tablet 1 04/21/19 25 Active fluticasone-umecl idinium-vilantero l (Trelegy Ellipta) 100-62.5-25 mcg inhaler Inhale 1 puff (100 mcg total) by mouth 1 (one) time each day. Rinse mouth with water after use to reduce aftertaste and incidence of candidiasis. Do not swallow. 1 each 2 06/17/19 25 2025 Active umeclidinium-tana nteroL (Anoro Ellipta) 62.5-25 mcg/actuation inhalerIndication s:Chronic obstructive pulmonary disease, unspecified COPD type ([facility] V24, [facility] V28) Inhale 1 puff by mouth 1 (one) time each day. 3 each 3 07/14/19 25 2025 Active albuterol HFA (PROAIR HFA ; PROVENTIL HFA ; VENTOLIN HFA) 90 mcg/actuation inhalerIndication s:Chronic obstructive pulmonary disease, unspecified COPD type ([facility] V24, [facility] V28) Inhale 2 puffs by mouth every 6 (six) hours if needed for wheezing or shortness of breath. 3 each 3 07/14/19 25 2025 Active ondansetron ODT (ZOFRAN-ODT) 8 mg disintegrating tablet DISSOLVE 1 TABLET (8 MG TOTAL) ON TOP OF THE TONGUE EVERY 8 HOURS NEEDED FOR NAUSEA AND VOMITING 30 tablet 1 08/25/19 25 Active diclofenac (VOLTAREN) 1 % topical gel APPLY 2 G TOPICALLY 2 (TWO) TIMES A DAY IF NEEDED (PAIN). 100 g 2 09/14/19 25 2024 Active tirzepatide, weight loss, (Zepbound) 7.5 mg/0.5 mL injectionIndicati ons:Morbid obesity ([facility] V24, [facility] V28) Inject 0.5 mL (7.5 mg total) under the skin every 7 (seven) days. 2 mL 10/19/19 25 Active colestipoL (COLESTID) 1 gram tablet TAKE 1 TABLET BY MOUTH 2 TIMES DAILY FOR 90 DAYS. 180 tablet 11/10/19 25 Active colestipoL (COLESTID) 1 gram tablet TAKE 1 TABLET BY MOUTH 2 TIMES DAILY FOR 90 DAYS. 180 tablet 06/30/19 25 2024 Discontinued tirzepatide, weight loss, (Zepbound) 5 mg/0.5 mL injectionIndicati ons:Morbid obesity ([facility] V24, [facility] V28) Inject 0.5 mL (5 mg total) under the skin every 7 (seven) days. 2 mL 10/11/19 25 2024 Hospital, Clinic, or Other Facility Administered Medication Ordered Dose Route Frequency Start Date End Date Status lidocaine (PF) (XYLOCAINE-MPF) 1 % injection 0.5 mLIndications:Capsulitis of metatarsophalangeal (MTP) joint of left foot,Capsulitis of right foot .5 mL inj Once PRN Procedure 10/30/2024 5 Ended triamcinolone acetonide (KENALOG-40) 40 mg/mL injection 40 mgIndications:Capsulitis of metatarsophalangeal (MTP) joint of left foot,Capsulitis of right foot 40 mg IAtc Once PRN Procedure 10/30/2024 5 Ended Active Problems Problem Noted Date Diagnosed Date Class 3 severe obesity witho ut serious comorbidity with body mass index (BMI) of 45.0 to 49.9 in adult ([facility] V24, [facility] V28) 09/18/2024 Diverticula of colon 06/16/2024 Fatty liver 06/16/2024 Gastroesophageal reflux disease 06/16/2024 Chronic gastritis without bleeding 06/16/2024 Class 3 severe obesity witho ut serious comorbidity with body mass index (BMI) of 45.0 to 49.9 in adult ([facility] V24, [facility] V28) 12/20/2023 Tear of medial meniscus of [...] Encounters Date Type Department Care Team Description 11/03/2024 10:00 AM EDT Office Visit Bariatric Surgery - [place] [address] [facility] [address] [place] [phone] Miranda Rayo PA Class 3 severe obesity without serious comorbidity with body mass index (BMI) of 45.0 to 49.9 in adult ([facility] V24, [facility] V28) (Primary Dx) 10/30/2024 1:00 PM EDT Office Visit Orthopedic Surgery [place] [address] [phone] Byron Kohli, DPM Equinus contracture of right ankle (Primary Dx); Arthritis of both feet; Capsulitis of metatarsophalangeal (MTP) joint of left foot; Capsulitis of right foot 09/18/2024 10:00 AM EDT Nutrition Bariatric Surgery [address] [phone] Earnestine Lin, SIVA Class 3 severe obesity without serious comorbidity with body mass index (BMI) of 45.0 to 49.9 in adult, unspecified obesity type (CMS/HCC V24, CMS/HCC V28) (Primary Dx) 09/13/2024 9:15 AM EDT Office Visit Orthopedic Surgery [address] [phone] Byron Kohli DPM Equinus contracture of right ankle (Primary Dx); Plantar fasciitis; Arthritis of both feet; Capsulitis of left foot 09/04/2024 10:00 AM EDT Treatment Outpatient Rehabilitation - [address] [phone] Desirae Kapadia, REAL ESTATE ECONOMIST Primary osteoarthritis of both knees (Primary Dx); Chronic pain of both knees; History of medial meniscus repair of right knee 08/31/2024 9:00 AM EDT Office Visit Bariatric [address] [phone] Miranda Raoy PA Class 3 severe obesity due to excess calories with body mass index (BMI) of 50.0 to 59.9 in adult, unspecified whether serious comorbidity present (CMS/HCC V24, CMS/HCC V28); EULALIO (obstructive sleep apnea) 08/28/2024 10:00 AM EDT Treatment Outpatient Rehabilitation - [address] [phone] Desirae Kapadia, REAL ESTATE ECONOMIST Primary osteoarthritis of both knees (Primary Dx); Chronic pain of both knees; History of medial meniscus repair of right knee from Last 3 Months Immunizations Name Administration Dates Next Due Influenza trivalent, recombi nant, 0.5mL, preservative free (Flublok) 9yo and older 11/09/2024 Pneumococcal conjugate 21 va lent (CAPVAXIVE, PCV [...] for your loved ones. For example, child neurologist or elderly care for an older adult? [...] Sign Reading Time Taken Comments Blood Pressure 143/72 11/03/2024 9:57 AM EDT Pulse 59 11/03/2024 9:57 AM EDT Temperature 36.6 C (97.8 F) 11/03/2024 9:57 AM EDT Respiratory Rate 18 06/08/2024 4:02 PM EDT Oxygen Saturation 97% 07/13/2024 1:39 PM EDT Inhaled Oxygen Concentration - - Weight 132 kg (292 lb) 11/03/2024 9:57 AM EDT Height 167.6 cm (5' 6 ) 11/03/2024 9:57 AM EDT Body Mass Index 47.13 11/03/2024 9:57 AM EDT Plan of Treatment Upcoming Encounters Date Type Department Care Team (Late st Contact Info) Description 11/29/2024 8:30 AM EDT Office Visit Adult Medicine [facility] [place] [address] [place], [place] [phone] Svitlana Garcia PA [address] [place], [place] 12/18/2024 10:00 AM EDT Nutrition Bariatric Surgery - [place] [address] [phone] Earnestine Lin, SIVA [address] [phone] 01/17/2025 10:50 AM EST Office Visit [facility] [address] [place] [phone] Lisha Fernández MD [address] [place] [address] [address] [place] [phone] 01/25/2025 1:00 PM EST Office Visit Pulmonology - [address] [phone] Daylin Moore MD 175 [facility] [address] [place] [address] 01/30/2025 1:00 PM EST Office Visit Orthopedic Surgery - [place] [address] [phone] Byron Kohli DPM [address] [phone] 04/04/2025 9:00 AM EST Office Visit Bariatric Surgery - [place] [address] [phone] Miranda Rayo [place] [facility] [place] [phone] Health Maintenance Due Date Last Done Comments Zoster Vaccines (1 of 2) 2022 HIV Screening 04/02/2023 Hypertension/CHF/CAD Annual BMP Blood Test 10/04/2024 10/05/2023, 10/05/2023 Social Influencers of Health Screening 04/19/2025 04/19/2024 Cholesterol Screening (Lipid Panel) 03/03/2029 03/03/2024, 10/06/2023, 10/06/2023, Additional history exists DTaP,Tdap,and Td Vaccines (3 - Td or Tdap) 05/13/2032 05/13/2022, 05/06/2012 Colorectal Cancer Screening: Colonoscopy 06/08/2034 06/08/2024 RSV Immunization Adult Patients (1 - 1-dose 75+ series) 2047 Hepatitis A Vaccines Completed 09/03/2010, 03/13/2010, 02/11/2010 Hepatitis B Vaccines Completed 09/03/2010, 03/13/2010, 02/11/2010 Hepatitis C Screening Completed 11/18/2023 Depression Screening Completed 04/19/2024, 10/05/19 24 COVID-19 Vaccine Completed 07/17/2024, , 09/07/2020, Additional history exists Pneumococcal Vaccine: 50+ Years Completed 07/17/2024, 09/25/2020 Influenza Vaccine Completed 11/09/2024, , 01/10/2021, Additional history exists HIB Vaccines Aged Out No longer eligi [...] Procedure Name Priority Date/Time Associated Diagnosis Comments INJECTION TENDON OR LIGAMENT Routine 10/30/2024 1:00 PM EDT Capsulitis of metatarsophalangeal (MTP) joint of left foot Capsulitis of right foot COLONOSCOPY Routine 06/08/2024 3:42 PM EDT Colon cancer screening GERD (gastroesophageal reflux disease) LIPID PANEL WITH REFLEX TO DIRECT LDL Routine 03/03/2024 9:13 AM EST Hypercholesterolemia HEPATITIS C SCREENING Routine 11/18/2023 DEPRESSION SCREENING Routine 10/05/2023 ANNUAL BMP BLOOD TEST Routine 10/05/2023 from Last 3 Months or Most Recently Relevant to Health Maintenance Results * Injection tendon or ligament (10/30/2024 1:00 PM EDT) Narrative Byron Kohli DPM - 10/30/2024 1:00 PM EDT Byron Kohli DPM 10/30/2024 8:21 PM Injection tendon or ligament Indications: pain Details: 25 G needle Medications: 0.5 mL lidocaine (PF) 1 %; 40 mg triamcinolone acetonide 40 mg/mL Informed Consent: Laterality: Bilateral us Byron Kohli DPM IN CLINIC/BEDSIDE ORDERABLE S Final Result * COLONOSCOPY Anesthesia - MAC; [facility] ENDOSCOPY (06/08/2024 3:42 PM EDT) Anatomical Region Laterality Modality Endoscopy 06/08/2024 3:17 PM EDT Impressions 06/08/2024 3:46 PM EDT - Diverticulosis in the sigmoid colon. - Internal hemorrhoids. - The examination was otherwise normal. - No specimens collected. Recommendation: - Discharge patient to home. - Repeat colonoscopy in 10 years for screening purposes. Narrative 06/08/2024 3:46 PM EDT [facility] Patient Name: Dnoald Hansen Procedure Date: 06/08/2024 3:17 PM Date [...] the procedure, a History and Physical was performed, and patient medications and allergies were reviewed. The patient is competent. The risks and benefits of the procedure and the sedation options and risks were discussed with the patient. All questions were answered and informed consent was obtained. Patient identification and proposed procedure were verified by the physician, the nurse, the owner/operator and the reprographics technician in the pre-procedure area in the endoscopy suite. Mental Status Examination: alert and oriented. Airway Examination: normal oropharyngeal airway and neck mobility. Respiratory Examination: clear to auscultation. CV Examination: normal. Prophylactic Antibiotics: The patient does not require prophylactic antibiotics. Prior Anticoagulants: The patient has taken no anticoagulant or antiplatelet agents. ASA Grade Assessment: III - A patient with severe systemic disease. After reviewing the risks and benefits, the patient was deemed in satisfactory condition to undergo the procedure. The anesthesia plan was to use monitored anesthesia care (MAC). Immediately prior to administration of medications, the patient was re-assessed for adequacy to receive sedatives. The heart rate, respiratory rate, oxygen saturations, blood pressure, adequacy of pulmonary ventilation, and response to care were monitored throughout the procedure. The physical status of the patient was re-assessed after the procedure. After I obtained informed consent, the scope was passed under direct vision. Throughout the procedure, the patient's blood pressure, pulse, and oxygen saturations were monitored continuously.The Colonoscope was introduced through the anus and advanced to the cecum, identified by appendiceal orifice and ileocecal valve. The colonoscopy was performed without difficulty. The patient tolerated the procedure well. The quality of the bowel preparation was good. Findings: The perianal and digital rectal examinations were normal. Scattered small-mouthed diverticula were found in the sigmoid colon. Internal hemorrhoids were found during retroflexion. The hemorrhoids were Grade I (internal hemorrhoids that do not prolapse). The exam was otherwise without abnormality. Procedure Code(s): --- Professional --- G0121, Colorectal cancer screening; colonoscopy on individual not meeting criteria for high risk Diagnosis Code(s): --- Professional --- Z12.11, Encounter for screening for malignant neoplasm of colon CPT copyright 2020 [employer]. All rights reserved. The codes documented in this report are preliminary and upon real estate development manager review may be revised to meet current compliance requirements. Neyda Blair MD 06/08/2024 3:46:33 PM This report has been signed electronically.Neyda Blair MD Number of Addenda: 0 Note Initiated On: 06/08/2024 3:17 PM Scope Withdrawal Time: 0 hours 6 minutes 57 seconds Scope In: 3:23:41 PM Scope Out: 3:33:54 PM Endoscopy Department at [facility] - [address] [place] [phone] Procedure Note Neyda Blair MD - 06/08/2024 [facility] Patient Name: Donald Hansen Procedure Date: 06/08/2024 3:17 PM Date [...] the physician, the nurse, theanesthetist and the reprographics technician in the pre-procedure area in the endoscopy [...] for malignantneoplasm of colon CPT copyright 2020 [employer]. All rights reserved. The codes documented in this report are preliminary and upon real estate development manager reviewmay be revised to meet current compliance requirements. Neyda Blair MD 06/08/2024 3:46:33 PM This report has been signed electronically.Neyda Blair MD Number of Addenda: 0 Note Initiated On: 06/08/2024 3:17 PM Scope Withdrawal Time: 0 hours 6 minutes 57 seconds Scope In: 3:23:41 PM Scope Out: 3:33:54 PM Endoscopy Department at [facility] - [address] [place] [phone] IMPRESSION: - Diverticulosis in the sigmoid colon. - Internal hemorrhoids. - The examination was otherwise normal. - No specimens collected. Recommendation: - Discharge patient to home. - Repeat colonoscopy in 10 years for screening purposes. Neyda Blair MD GI~PROCEDURE ORDERABLES Fin al Result * Lipid panel with reflex to direct LDL (03/03/2024 9:13 AM EST) [facility] Cholesterol 149 0 - 200 mg/dL LAB CHEMISTRY METHOD 03/03/2024 10:42 AM EST [facility] Triglycerides 86 0 - 150 mg/dL LAB CHEMISTRY METHOD 03/03/2024 10:[address] [facility] HDL 40 >=40 mg/dL LAB CHEMISTRY METHOD 03/03/2024 10:[address] [facility] LDL Calculated 92 0 - 100 mg/dL LAB CHEMISTRY METHOD 03/03/2024 10:[address] [facility] VLDL Cholesterol Brad 17.2 mg/dL LAB CHEMISTRY METHOD 03/03/2024 10:[address] [facility] Non HDL Chol. (LDL+VLDL) 109 <145 mg/dL LAB CHEMISTRY METHOD 03/03/2024 10:[address] [facility] Chol/HDL Ratio 3.7 0.0 - 4.4 LAB CHEMISTRY METHOD 03/03/2024 10:[address] [facility] Blood Venous blood specimen / Unknown Venipuncture / Unknown 03/03/2024 9:13 AM EST 03/03/2024 10:04 AM EST us Saji Cage MD LAB BLOOD ORDERABLES Final Result [facility] [address] [place] [address], [place] [phone] * Hepatitis C Screening (11/18/2023) [facility] Hepatitis C Screening Abstracted Historical Provider HEALTH MAINTENANCE Final Result * Annual BMP Blood Test (10/05/2023) Pathologist [facility] Annual BMP Blood Test Abstracted Historical Provider HEALTH MAINTENANCE Final Result * Depression Screening (10/05/2023) Pathologist [facility] Depression Screening Abstracted Historical Provider HEALTH MAINTENANCE Final Result from Last 3 Months or Most Recently Relevant to Health Maintenance Insurance [facility] Care Teams Director Of Special Education Relationship Specialty Start Date End Date Saji Cage MD [address] [place] [address] PCP - General 04/01/23
== END 2024-11-24 11:06 | disposition home or self-care (01) ==
LOC: HO.HSMS 09:53
PROVIDERS: PCP Internal Medicine; Visit Provider Physician Assistant Medical
DX: G47.33 Obstructive sleep apnea (adult) (pediatric) (principal); E66.01 Morbid (severe) obesity due to excess calories; Z68.43 Body mass index [BMI] 50.0-59.9, adult; R45.4 Irritability and anger; K59.01 Slow transit constipation; M54.32 Sciatica, left side
CPT/HCPCS: 99214

== ENCOUNTER → 2024-11-24 09:53 | Outpatient (BNVA) | payer OTHER, SELFPAY | PROVIDERS: PCP Internal Medicine; Visit Provider Physician Assistant Medical | DX: G47.33 Obstructive sleep apnea (adult) (pediatric) (principal); Z99.89 Dependence on other enabling machines and devices; E66.01 Morbid (severe) obesity due to excess calories; Z68.43 Body mass index [BMI] 50.0-59.9, adult; R45.4 Irritability and anger; K59.01 Slow transit constipation; M54.32 Sciatica, left side | CPT/HCPCS: 99212 ==

== ENCOUNTER 2024-11-27 10:31 | Outpatient (REF) | payer OTHER, SELFPAY ==
--- OUTSIDE RECORDS SUMMARY | 2024-01-06 13:30 | XMS_ITS | Encounter Summary ---
Author Organization [facility] Address [address] [place] [address] Care Team Providers Care Senior Interactive Developer Name Role Phone Saji Cage MD Primary Care Provider Encounter Details Date Type Department Care Team (Late st Contact Info) Description 01/06/2024 1:30 PM EDT Hospital Encounter TH HISTORIC ENCOUNTERS EASTERN CONVERSION ONLY Alberto Lynn MD [address] [place] [phone] Social History Tobacco Use Types Packs/Day Years Used Date Smoking Tobacco: Every Day Cigarettes Alcohol Use Standard Drinks/Week Comments Not Currently 0 (1 standard drink = 0.6 oz pur e alcohol) Housing Instability Answer Date Recorde d Are you worried that in the next 2 months you may not have stable housing? Yes 04/19/2024 Food Access & Nutrition Answer Date Rec orded Do you have access to a vari ety of food including fruits and vegetables? Yes 04/19/2024 Access to Healthcare Answer Date Record ed Within the last 3 months, ho w many times did you visit the emergency department for your medical care? 0 04/19/2024 Health Literacy Answer Date Recorded How often do you need to hav e someone help you when you read instructions, pamphlets, or other written material from your doctor or pharmacy? Never 04/19/2024 Caregiver: How often do you need to have someone help you when you read instructions, pamphlets, or other written material from your doctor or pharmacy? Not on file 04/19/2024 Financial Risk Answer Date Recorded How hard is it for you to pa y for the very basics like food, housing, medical care, and air conditioning / heating? Very hard 04/19/2024 Transportation Answer Date Recorded Has the lack of transportati on kept you from meetings, work, or from getting things needed for daily living? Yes Has the lack of transportati on kept you from medical appointments or from getting medications? Yes 04/19/2024 Social Isolation Answer Date Recorded How often do you feel lonely or isolated from those around you? Sometimes 04/19/2024 Food Risk Answer Date Recorded Within the past 12 months we worried whether our food would run out before we got money to buy more. Often true 025 Within the past 12 months th e food we bought just didn't last and we didn't have money to get more. Sometimes true 04/19/2024 Dependent Care Answer Date Recorded Do you need help finding or paying for care for your loved ones. For example, exceptional children's teacher or elderly care for an older adult? No 04/19/2024 Education Answer Date Recorded Do you think completing more education or training, like finishing a GED, going to college, or learning a trade, would be helpful for you? No 04/19/2024 Employment and Income Answer Date Recor ded During the last four weeks, have you been actively looking for work? No 04/19/2024 Living Situation Answer Date Recorded What is your living situation? 0 04/19/2024 Interpersonal Safety Answer Date Record ed Physical Abuse 06/08/2024 Verbal Abuse 06/08/2024 Sex and Gender Information Value Date Recorded Sex Assigned at Male 2024 8:39 AM EST Legal Sex Male 8:56 PM EST Gender Identity Male 2024 8:39 AM EST Sexual Orientation Straight 2024 8: 39 AM EST documented as of this encounter Plan of Treatment Upcoming Encounters Date Type Department Care Team (Late st Contact Info) Description 11/29/2024 8:30 AM EDT Office Visit Adult Medicine [address] [phone] Svitlana Garcia PA [address] [place] [address] 12/18/2024 10:00 AM EDT Nutrition Bariatric Surgery [address] [phone] Earnestine Lin, RD 175 [facility] 120 [place] [phone] 01/17/2025 10:50 AM EST Office Visit [facility] - [address] [place] [phone] Lisha Fernández MD [address] [place] [address] [address] [place] [phone] 01/25/2025 1:00 PM EST Office Visit Pulmonology - [place] 175 [facility] 200 [place] [phone] Daylin Moore MD 175 [facility] 200 [place] [address] 01/30/2025 1:00 PM EST Office Visit Orthopedic Surgery - [place] [address] [phone] Byron Kohli, CHANTAL [address] [address] 04/04/2025 9:00 AM EST Office Visit Bariatric Surgery - [place] 175 [facility] 120 [place] [phone] Miranda Rayo PA 230 [place] [phone] documented as of this encounter Visit Diagnoses Not on filedocumented in this encounter Care Teams Senior Interactive Developer Relationship Specialty Start Date End Date Saji Cage MD [address] [place] [address] PCP - General 04/01/23 documented as of this encounter
[2024-11-27 10:59] LABS: Hematocrit 39.1 % (42.0-52.0); Hemoglobin 12.9 g/dl (14.0-18.0); Mean Corpuscular HGB Conc 33.0 g/dl (31.0-36.0); Mean Corpuscular Hemoglobin 29.9 pg (27.0-33.0); Mean Corpuscular Volume 90.5 fL (80.0-98.0); NRBC Abs Auto 0.000 X10*3/uL (0.0-0.012); NRBC Pct Auto 0.0 /100WBC (0.0-0.2); Platelet Count 274 X10*3/uL (160-400); Red Blood Count 4.32 X10*6/uL (4.60-5.80); White Blood Count 6.2 X10*3/uL (4.8-10.8)
[2024-11-27 11:44] LABS: Alanine Aminotransferase 31 U/L (0-40); Albumin Level 4.3 g/dL (3.5-5.0); Alkaline Phosphatase 91 U/L (39-117); Anion Gap 10 (12-20); Aspartate Amino Transferase 30 U/L (5-37); Blood Urea Nitrogen 12 mg/dL (9-16); Calcium 8.9 mg/dL (8.4-10.2); Carbon Dioxide 24 mmol/L (22-29); Chloride 110 mmol/L (96-108); Estimated Glomerular Filt Rate > 60; Potassium 3.9 mmol/L (3.3-5.1); Sodium 140 mmol/L (135-145); Total Protein 6.8 g/dL (6.5-8.0)
[2024-11-27 11:55] LABS: Ferritin 216 ng/mL (20-250)
[2024-11-27 12:07] LABS: Folate 14.7 ng/mL (> or = 4.0); Vitamin B12 599 pg/mL (200-900)
--- OUTSIDE RECORDS SUMMARY | 2024-11-27 12:54 | XMS_ITS | Clinical Summary ---
Author Organization [address] [place] [address] Address [address] [place] [address] Phone Care Team Providers Care Vending Machine Host/Hostess Name Role Phone Saji Cage MD Primary [...] s:Chronic obstructive pulmonary disease, unspecified COPD type ([facility] V24, [facility] V28) Inhale 1 puff by mouth 1 (one) time each day. 3 each 3 07/14/19 25 2025 Active albuterol HFA (PROAIR HFA ; PROVENTIL HFA ; VENTOLIN HFA) 90 mcg/actuation inhalerIndication s:Chronic obstructive pulmonary disease, unspecified COPD type ([facility] V24, [facility] V28) Inhale 2 puffs by [...] (Zepbound) 7.5 mg/0.5 mL injectionIndicati ons:Morbid obesity ([facility] V24, [facility] V28) Inject 0.5 mL (7.5 mg [...] (Zepbound) 5 mg/0.5 mL injectionIndicati ons:Morbid obesity ([facility] V24, [facility] V28) Inject 0.5 mL (5 mg [...] (BMI) of 45.0 to 49.9 in adult ([facility] V24, [facility] V28) 09/18/2024 Diverticula of colon 06/16/2024 Fatty liver 06/16/2024 Gastroesophageal reflux disease 06/16/2024 Chronic gastritis without bleeding 06/16/2024 Class 3 severe obesity witho ut serious comorbidity with body mass index (BMI) of 45.0 to 49.9 in adult ([facility] V24, [facility] V28) 12/20/2023 Tear of medial meniscus of [...] AM EDT Office Visit Bariatric Surgery - [place] [address] [facility] [address] [place] [phone] Miranda Rayo PA Class 3 severe obesity without serious comorbidity with body mass index (BMI) of 45.0 to 49.9 in adult ([facility] V24, [facility] V28) (Primary Dx) 10/30/2024 1:00 PM EDT Office Visit Orthopedic Surgery [place] [phone] [phone] Byron Kohli, DPM Equinus contracture of right ankle (Primary Dx); Arthritis of both feet; Capsulitis of metatarsophalangeal (MTP) joint of left foot; Capsulitis of right foot 09/18/2024 10:00 AM EDT Nutrition Bariatric Surgery [address] [phone] Earnestine Lin, SIVA Class 3 severe obesity without serious comorbidity with body mass index (BMI) of 45.0 to 49.9 in adult, unspecified obesity type (CMS/HCC V24, CMS/HCC V28) (Primary Dx) 09/13/2024 9:15 AM EDT Office Visit Orthopedic Surgery [address] [phone] Byron Kohli DPM Equinus contracture of right ankle (Primary Dx); Plantar fasciitis; Arthritis of both feet; Capsulitis of left foot 09/04/2024 10:00 AM EDT Treatment Outpatient Rehabilitation - [address] [phone] Desirae Kapadia, EMERGENCY MEDICINE Primary osteoarthritis of both knees (Primary Dx); Chronic pain of both knees; History of medial meniscus repair of right knee 08/31/2024 9:00 AM EDT Office Visit Bariatric [address] [phone] Miranda Rayo PA Class 3 severe obesity due to excess calories with body mass index (BMI) of 50.0 to 59.9 in adult, unspecified whether serious comorbidity present (CMS/HCC V24, CMS/HCC V28); EULALIO (obstructive sleep apnea) 08/28/2024 10:00 AM EDT Treatment Outpatient Rehabilitation - [address] [phone] Desirae Kapadia, EMERGENCY MEDICINE Primary osteoarthritis of both knees (Primary Dx); [...] for your loved ones. For example, children's ministries director or elderly care for an older adult? [...] 8:30 AM EDT Office Visit Adult Medicine [facility] [address] [place], [place] [phone] Svitlana Garcia PA [address] [place], [place] 12/18/2024 10:00 AM EDT Nutrition Bariatric Surgery - [place] [address] [phone] Earnestine Lin, SIVA [address] [phone] 01/17/2025 10:50 AM EST Office Visit [facility] [address] [place] [phone] Lisha Fernández MD [address] [place] [address] [address] [place] [phone] 01/25/2025 1:00 PM EST Office Visit Pulmonology - [address] [phone] Daylin Moore MD 175 [facility] [address] [place] [address] 01/30/2025 1:00 PM EST Office Visit Orthopedic Surgery - [place] [address] [phone] Byron Kohli DPM [address] [phone] 04/04/2025 9:00 AM EST Office Visit Bariatric Surgery - [place] [address] [phone] Miranda Rayo PA [facility] [place] [phone] Health Maintenance Due Date Last [...] Final Result * COLONOSCOPY Anesthesia - MAC; [facility] ENDOSCOPY (06/08/2024 3:42 PM EDT) Anatomical Region Laterality Modality Endoscopy 06/08/2024 3:17 PM EDT Impressions 06/08/2024 3:46 PM EDT - Diverticulosis in the sigmoid colon. - Internal hemorrhoids. - The examination was otherwise normal. - No specimens collected. Recommendation: - Discharge patient to home. - Repeat colonoscopy in 10 years for screening purposes. Narrative 06/08/2024 3:46 PM EDT [facility] GI Patient Name: Donald Hansen Procedure Date: [...] verified by the physician, the nurse, the cognos administrator and the tar processing technician in the pre-procedure area in the [...] in this report are preliminary and upon franchise broker review may be revised to meet current compliance requirements. Neyda Blair MD 06/08/2024 3:46:33 PM This report has been signed electronically.Neyda Blair MD Number of Addenda: 0 Note Initiated On: 06/08/2024 3:17 PM Scope Withdrawal Time: 0 hours 6 minutes 57 seconds Scope In: 3:23:41 PM Scope Out: 3:33:54 PM Endoscopy Department at [facility] - [address] [place] [phone] Procedure Note Neyda Blair MD - 06/08/2024 [facility] GI Patient Name: Donald Hansen Procedure Date: [...] the physician, the nurse, theanesthetist and the tar processing technician in the pre-procedure area in the [...] in this report are preliminary and upon franchise broker reviewmay be revised to meet current compliance requirements. Neyda Blair MD 06/08/2024 3:46:33 PM This report has been signed electronically.Neyda Blair MD Number of Addenda: 0 Note Initiated On: 06/08/2024 3:17 PM Scope Withdrawal Time: 0 hours 6 minutes 57 seconds Scope In: 3:23:41 PM Scope Out: 3:33:54 PM Endoscopy Department at [facility] - [address] [place] [phone] IMPRESSION: - Diverticulosis in the sigmoid colon. - Internal hemorrhoids. - The examination was otherwise normal. - No specimens collected. Recommendation: - Discharge patient to home. - Repeat colonoscopy in 10 years for screening purposes. Neyda Blair MD GI~PROCEDURE ORDERABLES Fin al Result * Lipid panel with reflex to direct LDL (03/03/2024 9:13 AM EST) [facility] Cholesterol 149 0 - 200 mg/dL LAB CHEMISTRY METHOD 03/03/2024 10:42 AM EST [facility] Triglycerides 86 0 - 150 mg/dL LAB CHEMISTRY METHOD 03/03/2024 10:42 AM [facility] HDL 40 >=40 mg/dL LAB CHEMISTRY METHOD 03/03/2024 10:42 AM [facility] LDL Calculated 92 0 - 100 mg/dL LAB CHEMISTRY METHOD 03/03/2024 10:42 AM [facility] VLDL Cholesterol Brad 17.2 mg/dL LAB CHEMISTRY METHOD 03/03/2024 10:42 AM [facility] Non HDL Chol. (LDL+VLDL) 109 <145 mg/dL LAB CHEMISTRY METHOD 03/03/2024 10:42 AM [facility] Chol/HDL Ratio 3.7 0.0 - 4.4 LAB CHEMISTRY METHOD 03/03/2024 10:42 AM [facility] Blood Venous blood specimen / Unknown Venipuncture / Unknown 03/03/2024 9:13 AM EST 03/03/2024 10:04 AM EST us Saji Cage MD LAB BLOOD ORDERABLES Final Result [facility] [address] [place] [address], [place] [phone] * Hepatitis C Screening (11/18/2023) [facility] Hepatitis C Screening Abstracted Historical Provider HEALTH MAINTENANCE Final Result * Annual BMP Blood Test (10/05/2023) Pathologist [facility] Annual BMP Blood Test Abstracted Historical Provider HEALTH MAINTENANCE Final Result * Depression Screening (10/05/2023) Pathologist [facility] Depression Screening Abstracted Historical Provider HEALTH MAINTENANCE Final Result from Last 3 Months or Most Recently Relevant to Health Maintenance Insurance [facility] Care Teams Vending Machine Host/Hostess Relationship Specialty Start Date End Date Saji Cage MD [address] [place] [address] PCP - General 04/01/23
== END 2024-11-27 10:32 | disposition home or self-care (01) ==
LOC: HO.LAB 10:31
PROVIDERS: PCP Internal Medicine; Visit Provider Physician Assistant Medical
DX: G47.33 Obstructive sleep apnea (adult) (pediatric) (principal); G47.9 Sleep disorder, unspecified; K59.00 Constipation, unspecified; M54.32 Sciatica, left side; R53.83 Other fatigue
CPT/HCPCS: 36415; 80053; 82306; 82607; 82728; 82746; 83090; 83921; 84207; 84425; 84443; 85027